=== PATIENT | male | born 1945 | race Caucasian/White ===

== ENCOUNTER 2020-12-31 21:06 | Inpatient (IN) | payer MEDICARE ==
[~2020-12-31] VITALS: Ht 172.7 cm; Wt 55.3 kg
[2020-12-31] MEDS ORDERED: ASPI-1169 PO (22:10)
[2020-12-31] MEDS ORDERED: METO25TA4 PO (22:13)
[2020-12-31] MEDS ORDERED: MAGNESIUM HYDROXIDE 30 ML UDC PO PRN (22:30)
[2020-12-31] MEDS ORDERED: MAG HYDROX/AL HYDROX/SIMETH 30 ML UDC PO PRN (22:30)
[2020-12-31] MEDS ORDERED: ZOLPIDEM TARTRATE 5 MG TABLET PO PRN (22:30)
[2020-12-31] MEDS ORDERED: BLOOD SUGAR DIAGNOSTIC 1 EACH STRIP IN ONE (22:30)
[2020-12-31] MEDS ORDERED: ACETAMINOPHEN 325 MG TABLET PO PRN (22:30)
[2020-12-31] MEDS ORDERED: LORAZEPAM 0.5 MG TABLET PO PRN (22:30)
[2020-12-31] MEDS ORDERED: Z GUARD REMEDY 2 OZ OINT TP PRN (23:00)
--- NOTE | 2020-12-31 23:15 | NUR ---
GPS TUNNEL KILN REPAIRER NOTES: ADMITTED 75 Y/O MALE WHITE PATIENT FROM [facility] TO GPS UNIT ON A 5150 HOLD FOR DTS. PER 5150 HOLD, PATIENT HAS STOPPED TAKING HIS MEDICATIONS, HAS NOT BEEN EATING FOR WEEKS. REPORTS TIRED OF LIVING AND THAT IT IS HIS TIME. FOOD ROTTING IN REFRIGERATOR. HAS NOT BEEN OUT OF THE APARTMENT IN OVER A WEEK. UNABLE TO WALK WITHOUT ASSISTANCE. UNDERWEIGHT. REPORTS," JUST LEAVE HIM ALONE SO HE CAN ." UPON FACE TO FACE ASSESSMENT, PATIENT IS A & O X 1-2, CONFUSED, DISORGANIZED, DEPRESSED, POOR HYGIENE, DISHEVELED, WITHDRAWN, GUARDED, ISOLATIVE, WANTS TO GO BACK HOME, KEEPS ASKING WHY HE IS HERE, NEEDS ASSISTANCE WITH ADL CARE. PATIENT HAS UNSTEADY GAIT & FALL RISK DUE TO WEAKNESS, NEEDS FREQUENT REDIRECTIONS AND REMINDERS. UNIT & ROOM ORIENTATION PROVIDED. BLADDER AND BOWEL CONTINENT. PATIENT WAS ADVISED OF HIS HOLD AND PATIENTS RIGHT BOOKLET GIVEN. PATIENT IS UNDER THE PSYCH CARE OF DR. VELOZ AND THE MEDICAL CARE OF DR. ZULUAGA. PATIENT'S BELONGINGS WERE INVENTORIED AND CHECKED FOR CONTRABAND. ALL CONTRABAND REMOVED AND STORED IN PATIENT HALLWAY LOCKER. MRSA COLLECTED. BS CHECK DONE & IS 109 MG/DL. SKIN ASSESSMENT DONE, PICTURES TAKEN AND WOUND CARE CONSULT ORDERED. PATIENT REFUSED TO SIGN ADMISSION PAPERWORK DUE TO CONFUSION, PATIENT DENIES PAIN OR DISCOMFORT AT THIS TIME. DENIES SI/HI AT THIS TIME. BED IN LOWEST POSITION AND LOCKED WITH SIDE RAILS UP X2. BED ALARM ON. FLUID AND SNACKS GIVEN BUT ATE 25% AT THIS TIME. WILL CONTINUE TO ENCOURAGE PO INTAKE TOLERATED. DIETARY CONSULT ORDERED. WILL CONTINUE TO MONITOR Q15 MIN ROUNDS FOR SAFETY, MOOD AND BEHAVIOR.
--- NOTE | 2020-12-31 23:30 | NUR ---
RN NOTE VERIFIED WITH THE PATIENT WHO TO CALL & NOTIFY ABOUT HIS ADMISSION AT [facility] GPS UNIT," PER PATIENT," I DON'T HAVE ANY ONE LIVING HERE, MY SON LIVES SOME WHERE ELSE, I DON'T EVEN HAVE HIS PHONE NUMBER, THERE IS NO ONE TO CALL." NO FAMILY INFO RECEIVED FROM [facility] WELL.
[2020-12-31 23:51] VITALS: BP 127/72
--- NOTE | 2020-12-31 23:55 | NUR ---
RN NOTE PATIENT SEEN BY DR. ZULUAGA IN HIS ROOM & MED RECON DONE BY MD WELL.
--- NOTE | 2021-01-01 03:47 | NUR ---
RN NOTE PATIENT IS SLEEPING COMFORTABLY AT THIS TIME.
[2021-01-01 06:11] LABS: BASOPHILS % (AUTO) 0.4 % (0.0-2.0); EOSINOPHILS % (AUTO) 0.6 % (0.0-6.0); HEMATOCRIT 45 % (39-51); HEMOGLOBIN 15.4 g/dL (13.5-17.5); LYMPHOCYTES # (AUTO) 1.1 /CMM (0.8-4.8); LYMPHOCYTES % (AUTO) 10.3 % (20.0-44.0); MEAN CORPUSCULAR HGB CONC 34 g/dl (31.0-36.0); MEAN CORPUSCULAR VOLUME 99 fL (80-96); MONOCYTES # (AUTO) 0.9 /CMM (0.1-1.30); MONOCYTES % (AUTO) 8.2 % (2.0-12.0); NEUTROPHILS # (AUTO) 8.4 /CMM (1.8-8.9); NEUTROPHILS % (AUTO) 80.5 % (43.0-81.0); PLATELET COUNT (AUTO) 249 /CMM (150-450); RED BLOOD CELL COUNT(AUTO) 4.59 MIL/uL (4.5-6.0); WHITE BLOOD COUNT (AUTO) 10.4 K/uL (4.3-11.0)
[2021-01-01 06:54] LABS: ALBUMIN 3.1 g/dL (3.4-5.0); BILIRUBIN,TOTAL 0.7 mg/dL (0.2-1.0); CALCIUM, SERUM 12.1 mg/dL (8.5-10.1); CREATININE 0.9 mg/dL (0.6-1.3); MAGNESIUM 1.9 mg/dL (1.8-2.4); PHOSPHORUS 2.2 mg/dL (2.5-4.9); POTASSIUM 3.8 mmol/L (3.5-5.1); TOTAL PROTEIN, SERUM 7.1 g/dL (6.4-8.2)
[2021-01-01 07:35] LABS: THYROID STIMULATING HORMONE 0.991 uIU/mL (0.358-3.74)
[2021-01-01 08:00] VITALS: BP 100/66
[2021-01-01] MEDS: METOPROLOL SUCCINATE 25 MG TAB.SR.24H PO SCH (09:00)
[2021-01-01] MEDS: ASPIRIN 81 MG TAB.CHEW PO SCH (10:15)
[2021-01-01] MEDS: ENSURE ENLIVE CHOC 237 ML CAN PO SCH ×2 (10:15→17:47)
[2021-01-01] MEDS ORDERED: K PHOS NEUTRAL 250 MG TABLET PO ONE (11:00)
[2021-01-01 16:00] VITALS: BP 106/65
--- NOTE | 2021-01-01 18:00 | NUR ---
attempting to get oob often,monitoring closely
[2021-01-01] MEDS: OLANZAPINE 2.5 MG TABLET PO SCH (18:21)
[2021-01-01 20:05] VITALS: BP 109/60
[2021-01-01] MEDS: MIRTAZAPINE 15 MG TABLET PO SCH (22:00)
--- NOTE | 2021-01-01 22:20 | NUR ---
GPS RN NOTES: PATIENT SPIT OUT ATIVAN, TYLENOL AND REMERON. PATIENT IS CONFUSED, RESTLESS AND ANXIOUS. UNABLE TO FOLLOW REDIRECTION. WILL CONTINUE TO MONITOR.
--- NOTE | 2021-01-01 22:29 | NUR ---
GPS RN NOTES: PATIENT SPIT OUT 2200 SCHEDULED MEDICATION REMERON 15MG. PATIENT IS CONFUSED, RESTLESS AND ANXIOUS. UNABLE TO FOLLOW REDIRECTION. WILL CONTINUE TO MONITOR.
--- NOTE | 2021-01-01 22:30 | NUR ---
GPS RN NOTES: PATIENT SPIT OUT PRN MEDICATIONS ATIVAN 0.5MG/1TAB, AND TYLENOL 650MG. PATIENT IS CONFUSED, RESTLESS AND ANXIOUS. UNABLE TO FOLLOW REDIRECTION. WILL CONTINUE TO MONITOR.
[2021-01-02 06:32] LABS: ALBUMIN 2.9 g/dL (3.4-5.0); BILIRUBIN,TOTAL 0.6 mg/dL (0.2-1.0); CALCIUM, SERUM 11.8 mg/dL (8.5-10.1); CREATININE 1.2 mg/dL (0.6-1.3); POTASSIUM 3.2 mmol/L (3.5-5.1); TOTAL PROTEIN, SERUM 6.6 g/dL (6.4-8.2)
[2021-01-02 08:00] VITALS: BP 91/60
[2021-01-02] MEDS: METOPROLOL SUCCINATE 25 MG TAB.SR.24H PO SCH (09:00)
[2021-01-02] MEDS ORDERED: POTASSIUM CHLORIDE 20 MEQ TAB.PRT.SR PO ONE (09:00)
[2021-01-02] MEDS: OLANZAPINE 2.5 MG TABLET PO SCH ×2 (09:00→16:26)
[2021-01-02] MEDS: ENSURE ENLIVE CHOC 237 ML CAN PO SCH ×2 (09:07→16:26)
[2021-01-02] MEDS: ASPIRIN 81 MG TAB.CHEW PO SCH (09:12)
[2021-01-02] MEDS: CHOLECALCIFEROL 1,000 UNIT TABLET (VIT D3) PO SCH (13:01)
[2021-01-02 16:00] VITALS: BP 103/73
[2021-01-02 20:15] VITALS: BP 105/67
[2021-01-02] MEDS: MIRTAZAPINE 15 MG TABLET PO SCH (21:01)
[2021-01-03 06:59] LABS: HEMATOCRIT 51 % (39-51); HEMOGLOBIN 16.9 g/dL (13.5-17.5); LYMPHOCYTES # (AUTO) 0.8 /CMM (0.8-4.8); MEAN CORPUSCULAR HGB CONC 33 g/dl (31.0-36.0); MEAN CORPUSCULAR VOLUME 101 fL (80-96); MONOCYTES # (AUTO) 1.1 /CMM (0.1-1.30); MONOCYTES % (AUTO) 5.1 % (2.0-12.0); NEUTROPHILS # (AUTO) 19.1 /CMM (1.8-8.9); NEUTROPHILS % (AUTO) 90.9 % (43.0-81.0); PLATELET COUNT (AUTO) 224 /CMM (150-450); RED BLOOD CELL COUNT(AUTO) 5.02 MIL/uL (4.5-6.0)
[2021-01-03 08:00] VITALS: BP 95/69
[2021-01-03 08:19] LABS: ALANINE AMINOTRANSFERASE 18 U/L (12-78); ALBUMIN 3.7 g/dL (3.4-5.0); ALKALINE PHOSPHATASE 96 U/L (46-116); ASPARTATE AMINOTRANSFERASE 24 U/L (15-37); BILIRUBIN,TOTAL 0.7 mg/dL (0.2-1.0); CARBON DIOXIDE 27 mmol/L (21-32); CHLORIDE 97 mmol/L (98-107); GLUCOSE 144 mg/dL (74-106); MAGNESIUM 2.3 mg/dL (1.8-2.4); PHOSPHORUS 3.5 mg/dL (2.5-4.9); POTASSIUM 4.2 mmol/L (3.5-5.1); SODIUM SERUM 136 mmol/L (136-145); TOTAL PROTEIN, SERUM 8.4 g/dL (6.4-8.2); UREA NITROGEN, BLOOD 38 mg/dL (7-18)
[2021-01-03 08:22] LABS: CALCIUM, SERUM 13.5 mg/dL (8.5-10.1)
[2021-01-03] MEDS: METOPROLOL SUCCINATE 25 MG TAB.SR.24H PO SCH (08:32)
[2021-01-03] MEDS: ENSURE ENLIVE CHOC 237 ML CAN PO SCH ×2 (08:35→17:06)
[2021-01-03] MEDS: ASPIRIN 81 MG TAB.CHEW PO SCH (08:41)
[2021-01-03] MEDS: OLANZAPINE 2.5 MG TABLET PO SCH ×2 (08:41→17:00)
[2021-01-03] MEDS: CHOLECALCIFEROL 1,000 UNIT TABLET (VIT D3) PO SCH (08:41)
--- NOTE | 2021-01-03 09:15 | NUR ---
RN NOTE ADRYAN HOUSTON ENDORSED A CRITICAL VALUE OF CALCIUM 13.5, REPORTED IT TO KATELIN ROSARIO NP. NO NEW ORDERS.
--- NOTE | 2021-01-03 15:49 | NUR ---
No Point of Contact: SW met with pt. and explored if pt. has any responsible libertarian, family, DPOA, Conservator. Pt. stated, he has one son and one brother however, they are not involved in his life nor does he have their contact information.
--- NOTE | 2021-01-03 15:51 | NUR ---
Initial Discharge Plan: Per pt. he resides at home alone [[address] [facility] [address]; [phone]]. Patient stated he would like to return there once ready for discharge. However, per hold, pt. needs assistance walking, and may need assistance with ADL's. SW will collaborate with pt. and IDT to ensure safe & appropriate discharge planning.
[2021-01-03 16:00] VITALS: BP 97/67
[2021-01-03 20:00] VITALS: BP 118/71
[2021-01-03] MEDS: MIRTAZAPINE 15 MG TABLET PO SCH (21:44)
--- NOTE | 2021-01-04 07:07 | NUR ---
GPS RN CLOSING NOTES: PATIENT IS SLEEPING COMFORTABLY IN BED. PATIENT SLEPT 8HR THIS SHIFT. NO S/S OF DISTRESS. RESPIRATION EVEN AND UNLABORED WITH EQUAL RISE AND FALL OF THE CHEST ON ROOM AIR. ALL PATIENT CARE NEEDS HAVE BEEN MET ANTICIPATED. WILL CONTINUE TO MONITOR FOR SAFETY, MOOD AND BEHAVIOR AND ENDORSE TO AM SHIFT.
[2021-01-04 08:00] VITALS: BP 107/62
[2021-01-04 08:23] LABS: ALANINE AMINOTRANSFERASE 12 U/L (12-78); ALBUMIN 2.8 g/dL (3.4-5.0); ALKALINE PHOSPHATASE 82 U/L (46-116); ASPARTATE AMINOTRANSFERASE 22 U/L (15-37); BILIRUBIN,TOTAL 0.6 mg/dL (0.2-1.0); CARBON DIOXIDE 23 mmol/L (21-32); CHLORIDE 100 mmol/L (98-107); CREATININE 1.7 mg/dL (0.6-1.3); GLUCOSE 113 mg/dL (74-106); POTASSIUM 3.8 mmol/L (3.5-5.1); SODIUM SERUM 136 mmol/L (136-145); TOTAL PROTEIN, SERUM 6.7 g/dL (6.4-8.2); UREA NITROGEN, BLOOD 48 mg/dL (7-18)
--- NOTE | 2021-01-04 08:50 | NUR ---
gps front man: notes tara lyons (recruiter specialist) notified re: abnormal chem today and wbc result from yesterday. also informed her that pt is more lethargic with order may straight cath to collect urine sample. order read back and carried out.
[2021-01-04] MEDS: ASPIRIN 81 MG TAB.CHEW PO SCH ×2 (09:00→10:43)
[2021-01-04] MEDS: OLANZAPINE 2.5 MG TABLET PO SCH (09:00)
[2021-01-04] MEDS: METOPROLOL SUCCINATE 25 MG TAB.SR.24H PO SCH (09:00)
--- NOTE | 2021-01-04 09:15 | NUR ---
gps concrete paving supervisor: notes blood culture drawn at this time, pt remains sleepy, but arousable. held am meds at this time. will continue to monitor.
[2021-01-04] MEDS: ENSURE ENLIVE CHOC 237 ML CAN PO SCH ×2 (09:17→16:55)
--- NOTE | 2021-01-04 09:55 | NUR ---
gps cash applications specialist: notes urine collected via aseptic straight cath technique, kaelyn. yovany. called lab spoke to tavon (david) to picking machine operator specimen.
--- NOTE | 2021-01-04 10:00 | NUR ---
gps dredge pipe installer: md visit tara lyons (credit interviewer) here to see pt. informed her of procalcitonin result; also pt with poor appetite.
[2021-01-04] MEDS: AZITHROMYCIN 250 MG TABLET PO SCH (10:42)
--- NOTE | 2021-01-04 11:38 | NUR ---
WOUND CARE CONSULT: PT PRESENTS THIN AND BONY WITH BLANCHABLE REDNESS TO SACRUM, PRESENT ON ADMISSION. PT IS INCONTINENT. RECOMMENDATIONS MADE FOR SKIN PROTECTION. DISCUSSED WITH NURSING STAFF. IN AGREEMENT WITH PLAN OF CARE. PT FOLLOWED BY DIETITIAN FOR POOR APPETITE. Addendum: 01/04/21 at 1139 by EWELINA LACEY WNDNU Amended: Links added.
[2021-01-04 11:39] LABS: BILIRUBIN,URINE SMALL (NEGATIVE); COLOR,URINE ORANGE (YELLOW); LEUKOCYTE ESTERASE ,URINE NEGATIVE (NEGATIVE); NITRITE, URINE NEGATIVE (NEGATIVE); PH,URINE 5.5 (5.0-8.0); PROTEIN,URINE TRACE mg/dl (NEGATIVE); UGLUCOSE NEGATIVE (NEGATIVE)
[2021-01-04 11:42] LABS: CREATININE, URINE 181.1 MG/DL (30.0-125.0)
[2021-01-04 11:45] LABS: URINE SODIUM, RANDOM < 5 mmol/l (40-220)
[2021-01-04 12:04] LABS: BACTERIA,URINE Few /HPF (None Seen); RBC,URINE F /HPF (0-2); SQUAMOUS EPITHELIAL CELL,UR Few /HPF (None Seen)
--- NOTE | 2021-01-04 14:06 | NUR ---
Family Contact: STACY received a call from the pts brother, Anam ([phone]), who stated that he would like to know where the pt will be discharged to when that time comes. Addendum: 01/05/21 at 1007 by STACY TRIPATHI Pts brotherHong
--- NOTE | 2021-01-04 14:07 | NUR ---
APS Contact: SW received a call from Freddie ([phone]), who stated that he would like to be informed of the pts discharge.
--- NOTE | 2021-01-04 14:22 | NUR ---
Family Contact: STACY received a call from the pts son, Galdino ([phone]), and STACY informed him about the pts condition in the hospital and stated that the pt will be discharged to a nursing facility. STACY stated that she will keep him updated.
[2021-01-04 16:00] VITALS: BP 114/71
[2021-01-04] MEDS: OLANZAPINE ZYDIS 5 MG TAB.RAPDIS PO SCH (16:54)
--- NOTE | 2021-01-04 17:40 | NUR ---
gps field auto appraiser: notes pt remains with poor appetite. pt keeps spitting out food when offered. afebrile. in no apparent distress noted. will continue to monitor.
[2021-01-04 20:00] VITALS: BP 106/62
[2021-01-04] MEDS: MIRTAZAPINE 15 MG TABLET PO SCH (21:07)
[2021-01-05 08:00] VITALS: BP 98/67
[2021-01-05] MEDS: OLANZAPINE ZYDIS 5 MG TAB.RAPDIS PO SCH (09:00)
[2021-01-05] MEDS: METOPROLOL SUCCINATE 25 MG TAB.SR.24H PO SCH (09:00)
--- NOTE | 2021-01-05 09:51 | NUR ---
BP LOW EARLIER.RECHECKED AT THIS TIME AND 104/57,HEART RATE 117.
[2021-01-05] MEDS: AZITHROMYCIN 250 MG TABLET PO SCH (09:57)
[2021-01-05] MEDS: ENSURE ENLIVE CHOC 237 ML CAN PO SCH ×2 (09:57→17:35)
[2021-01-05] MEDS: ASPIRIN 81 MG TAB.CHEW PO SCH (09:57)
--- NOTE | 2021-01-05 09:58 | NUR ---
Probable Cause Hearing: Pts 5250 hold was upheld for grave disability.
--- NOTE | 2021-01-05 10:07 | NUR ---
Family Contact: SW received a call from the pts brother, Hong ([phone]), who stated that he wanted an update on the pt. SW stated that the pt is cooperating with his medications now and that the SW is going to work on finding placement.
[2021-01-05 12:12] LABS: BASOPHILS % (AUTO) 0.1 % (0.0-2.0); HEMATOCRIT 47 % (39-51); HEMOGLOBIN 15.6 g/dL (13.5-17.5); LYMPHOCYTES # (AUTO) 0.8 /CMM (0.8-4.8); LYMPHOCYTES % (AUTO) 4.4 % (20.0-44.0); MEAN CORPUSCULAR HGB CONC 33 g/dl (31.0-36.0); MEAN CORPUSCULAR VOLUME 100 fL (80-96); MONOCYTES # (AUTO) 1.2 /CMM (0.1-1.30); MONOCYTES % (AUTO) 6.9 % (2.0-12.0); NEUTROPHILS # (AUTO) 15.2 /CMM (1.8-8.9); NEUTROPHILS % (AUTO) 88.6 % (43.0-81.0); PLATELET COUNT (AUTO) 261 /CMM (150-450); RED BLOOD CELL COUNT(AUTO) 4.66 MIL/uL (4.5-6.0); WHITE BLOOD COUNT (AUTO) 17.2 K/uL (4.3-11.0)
[2021-01-05 12:29] LABS: CALCIUM, SERUM 12.5 mg/dL (8.5-10.1); CARBON DIOXIDE 29 mmol/L (21-32); CHLORIDE 96 mmol/L (98-107); CREATININE 1.6 mg/dL (0.6-1.3); GLUCOSE 133 mg/dL (74-106); MAGNESIUM 2.4 mg/dL (1.8-2.4); PHOSPHORUS 2.6 mg/dL (2.5-4.9); POTASSIUM 3.8 mmol/L (3.5-5.1); SODIUM SERUM 135 mmol/L (136-145); UREA NITROGEN, BLOOD 48 mg/dL (7-18)
[2021-01-05] MEDS ORDERED: IV NS 0.9% 1,000 ML IV ONE (13:00)
--- NOTE | 2021-01-05 14:20 | NUR ---
ALHAJI UNDERGROUND PRODUCTION FOREPERSON HERE,IV FLUID ORDERS GIVEN.HEP LOCK START WITH #22 ANGIO IN RT. FOREARM,WITHOUT DIFFICULTY. PT. TOLERATED WELL.IN TV RM. WITH SUPERVISION.IN [place] CHAIR.
[2021-01-05 16:00] VITALS: BP 104/65
[2021-01-05 19:49] VITALS: BP 96/66
[2021-01-05] MEDS: MIRTAZAPINE 15 MG TABLET PO SCH (21:42)
[2021-01-05] MEDS ORDERED: OLANZAPINE ZYDIS 5 MG TAB.RAPDIS PO SCH (22:00)
[2021-01-06 06:42] LABS: MAGNESIUM 2.2 mg/dL (1.8-2.4); PHOSPHORUS 2.2 mg/dL (2.5-4.9); POTASSIUM 3.8 mmol/L (3.5-5.1)
[2021-01-06 07:11] LABS: EOSINOPHILS % (AUTO) 0.2 % (0.0-6.0); HEMATOCRIT 40 % (39-51); HEMOGLOBIN 13.5 g/dL (13.5-17.5); LYMPHOCYTES % (AUTO) 9.1 % (20.0-44.0); MEAN CORPUSCULAR HGB CONC 34 g/dl (31.0-36.0); MEAN CORPUSCULAR VOLUME 99 fL (80-96); MONOCYTES # (AUTO) 0.9 /CMM (0.1-1.30); MONOCYTES % (AUTO) 8.7 % (2.0-12.0); NEUTROPHILS # (AUTO) 8.7 /CMM (1.8-8.9); PLATELET COUNT (AUTO) 204 /CMM (150-450); RED BLOOD CELL COUNT(AUTO) 4.01 MIL/uL (4.5-6.0); WHITE BLOOD COUNT (AUTO) 10.7 K/uL (4.3-11.0)
[2021-01-06 08:00] VITALS: BP 116/72
[2021-01-06] MEDS: ENSURE ENLIVE CHOC 237 ML CAN PO SCH ×3 (08:31→17:26)
[2021-01-06] MEDS: ASPIRIN 81 MG TAB.CHEW PO SCH (08:31)
[2021-01-06] MEDS: METOPROLOL SUCCINATE 25 MG TAB.SR.24H PO SCH (08:32)
--- NOTE | 2021-01-06 09:00 | NUR ---
RN NOTE- PT IN BED, ST AT BEDSIDE ASSISTING W AM MEAL. PT W TROUBLE SWALLOWING , SLOW TO SWALLOW., DYSPHAGIA. CHANGING FLUIDS TO HONEY THICK, MED COMPLIANT, CHEST W RHONCHI AT MAINSTEM BRONCHUS, CLEARS W COUGH. END TRIMMER KITTY TO ORDER EXPECTORANT , ASSIST PT AND INCREASE FLUIDS AND INTAKE
[2021-01-06] MEDS ORDERED: NEUTRA PHOS 1 POWD.PACKET PO ONE ×2 (11:00→17:00)
[2021-01-06] MEDS: AZITHROMYCIN 250 MG TABLET PO SCH (11:36)
[2021-01-06 13:07] LABS: *SPE A/G RATIO 0.9 (0.7-1.7); *SPE ALBUMIN 3.4 g/dL (2.9-4.4); *SPE ALPHA-1-GLOBULIN 0.5 g/dL (0.0-0.4); *SPE ALPHA-2-GLOBULIN 0.9 g/dL (0.4-1.0); *SPE BETA GLOBULIN 1.2 g/dL (0.7-1.3); *SPE GLOBULIN, TOTAL 3.9 g/dL (2.2-3.9); *SPE M-SPIKE Not Observed g/dL (Not Observed); *SPEGAMMA GLOBULIN 1.3 g/dL (0.4-1.8)
[2021-01-06 16:00] VITALS: BP 98/69
--- NOTE | 2021-01-06 19:30 | NUR ---
GPS RN OPENING PATIENT A/OX3. NO S/S OF APPARENT DISTRESS. BREATHING UNLABORED WITH EQUAL RISE AND FALL OF THE CHEST. TOLERATING ROOM AIR WITH SPO2 100%. NO C/O PAIN VIET. PATIENT COOPERATIVE, HAS FLAT AFFECT, AND WITHDRAWN AT THIS TIME. PATIENT DENIES SUICIDAL IDEATION AND HOMICIDAL IDEATIONS AT THIS TIME. SAFETY IN PLACE, BED IN LOWEST, LOCKED POSITION, SIDE RAILS UP X4, BED ALARM ON. WILL CONTINUE TO MONITOR Q15 MIN WITH THE HELP OF STAFF TO MAINTAIN SAFETY.
[2021-01-06 20:18] VITALS: BP 102/64
[2021-01-06] MEDS ORDERED: OLANZAPINE ZYDIS 5 MG TAB.RAPDIS PO SCH (22:00)
--- NOTE | 2021-01-07 06:28 | NUR ---
GPS RN CLOSING PATIENT IN BED, WITH EYES CLOSED, MOUTH OPEN, EASY TO AROUSE. A/OX2. NO S/S OF APPARENT DISTRESS. BREATHING UNLABORED WITH EQUAL RISE AND FALL OF THE CHEST. TOLERATING ROOM AIR. NO C/O PAIN VIET. ALL NEEDS ATTENDED. PATIENT COMPLIANT WITH MEDS. PATIENT DENIES SUICIDAL IDEATION AND HOMICIDAL IDEATIONS AT THIS TIME. SAFETY KEPT IN PLACE THE WHOLE SHIFT, BED IN LOWEST, LOCKED POSITION, SIDE RAILS UP X2, BED ALARM ON. NO SIGNIFICANT CHANGE SINCE LAST SHIFT. WILL ENDORSE CARE TO MORNING SHIFT RN .
[2021-01-07 06:57] LABS: BASOPHILS % (AUTO) 0.1 % (0.0-2.0); EOSINOPHILS % (AUTO) 0.9 % (0.0-6.0); HEMATOCRIT 38 % (39-51); HEMOGLOBIN 13.1 g/dL (13.5-17.5); LYMPHOCYTES % (AUTO) 11.3 % (20.0-44.0); MEAN CORPUSCULAR HGB CONC 34 g/dl (31.0-36.0); MEAN CORPUSCULAR VOLUME 99 fL (80-96); MONOCYTES # (AUTO) 0.9 /CMM (0.1-1.30); NEUTROPHILS # (AUTO) 6.7 /CMM (1.8-8.9); NEUTROPHILS % (AUTO) 77.7 % (43.0-81.0); PLATELET COUNT (AUTO) 233 /CMM (150-450); RED BLOOD CELL COUNT(AUTO) 3.85 MIL/uL (4.5-6.0); WHITE BLOOD COUNT (AUTO) 8.6 K/uL (4.3-11.0)
[2021-01-07 07:14] LABS: CALCIUM, SERUM 10.8 mg/dL (8.5-10.1)
[2021-01-07 07:15] LABS: MAGNESIUM 2.1 mg/dL (1.8-2.4); PHOSPHORUS 1.5 mg/dL (2.5-4.9)
[2021-01-07 08:00] VITALS: BP 120/60
[2021-01-07] MEDS: ENSURE ENLIVE CHOC 237 ML CAN PO SCH ×3 (08:33→16:54)
[2021-01-07] MEDS: ASPIRIN 81 MG TAB.CHEW PO SCH (08:33)
[2021-01-07] MEDS: METOPROLOL SUCCINATE 25 MG TAB.SR.24H PO SCH (08:34)
[2021-01-07] MEDS ORDERED: K PHOS NEUTRAL 250 MG TABLET PO ONE (11:00)
--- NOTE | 2021-01-07 11:30 | NUR ---
gps delicate fabrics presser: notes dr. basilio (psych) here and made re: pt remains with poor appetite. per dr. basilio let the medical doctor decides if needed to go to medical floor. awaiting for dr. ambriz (hospitalist) to make rounds. will continue to monitor.
[2021-01-07] MEDS: AZITHROMYCIN 250 MG TABLET PO SCH (11:55)
--- NOTE | 2021-01-07 12:50 | NUR ---
gps lion hunter: notes dr. ambriz here and informed md that pt remains with poor appetite and also per speech therapist, pt may benefit with ngt feeding and also recommends Video swallow study may benefit the pt to assess his pharyngeal swallow skill and aspiration risk. dr. ambriz says okay pt to go up to medical floor and he will let tara lyons (acnp) know for admission. left message to rik (son) via voice mail.
--- NOTE | 2021-01-07 13:40 | NUR ---
gps profiler operator: notes dr. basilio notified and informed md that dr. ambriz (hospitalist) okay to d'c to medical floor with order to continue hold and discharge pt to medical floor.
--- NOTE | 2021-01-07 15:20 | NUR ---
gps herb digger: notes still awaiting for bed in med/surg and sitter to go with the pt to medical floor.
--- NOTE | 2021-01-07 15:25 | NUR ---
gps creasing machine operator: notes place another call to Galdino (son, ), left message to call [facility].
--- NOTE | 2021-01-07 15:40 | NUR ---
gps money manager: notes coco (brother, ) notified and made aware re: transfer to medical floor unit for further evaluation due to poor intake, spoke to him over the phone and also informed him that i have left 2 message to rik (son), but he hasn't called back.
[2021-01-07] MEDS ORDERED: MAGN400O6 PO (15:43)
[2021-01-07] MEDS ORDERED: LACT-246 PO (15:43)
[2021-01-07] MEDS ORDERED: ACET-868 PO (15:43)
[2021-01-07] MEDS ORDERED: OLAN2.5T3 PO (15:43)
[2021-01-07] MEDS ORDERED: METO25TA4 PO (15:43)
[2021-01-07] MEDS ORDERED: AZIT500T PO (15:43)
[2021-01-07] MEDS ORDERED: LORA-259 PO (15:43)
[2021-01-07] MEDS ORDERED: MAG-55 PO (15:43)
[2021-01-07] MEDS ORDERED: ASPI-1169 PO (15:43)
[2021-01-07] MEDS ORDERED: ALLA266C2 TP (15:43)
[2021-01-07 16:00] VITALS: BP 90/56
--- NOTE | 2021-01-07 17:40 | NUR ---
gps die sinker apprentice: notes bed available in medical floor room 311-1. faxed facesheet to admitting to move pt from 213-2 to room 311-1.
--- NOTE | 2021-01-07 17:50 | NUR ---
gps auto body worker: notes report given to valerie (rn) for continuity of care. pm care rendered and getting ready to go up to room 311-1 with belongings, original hold, and d'c papers.
--- NOTE | 2021-01-07 17:53 | NUR ---
gps chief business officer: notes e.r. admitting notified and made aware that pt can go ahead move to room 311-1
--- NOTE | 2021-01-07 18:10 | NUR ---
gps supervisor cell operation: notes discharge pt from gps to 3rd floor med surg room 311-1 via wheelchair accompanied by 2 staff. transferred pt safely to bed. kept comfortable. sitter at bedside. valerie (rn) updated condition.
== END 2021-01-07 17:48 | disposition short-term general hospital (02) | DRG 885 ==
LOC: GPS 21:43
PROVIDERS: ADMIT Psychiatry & Neurology Psychiatry; ATTEND Internal Medicine
DX: F39 Unspecified mood [affective] disorder (principal); E43 Unspecified severe protein-calorie malnutrition; N17.0 Acute kidney failure with tubular necrosis; G92 Toxic encephalopathy; J18.9 Pneumonia, unspecified organism; F03.91 Unspecified dementia, unspecified severity, with behavioral disturbance; Z68.1 Body mass index [BMI] 19.9 or less, adult; E83.52 Hypercalcemia; F32.9 Major depressive disorder, single episode, unspecified; I10 Essential (primary) hypertension; R62.7 Adult failure to thrive; E87.6 Hypokalemia; E55.9 Vitamin D deficiency, unspecified; E83.39 Other disorders of phosphorus metabolism; E86.0 Dehydration; F29 Unspecified psychosis not due to a substance or known physiological condition; Z73.6 Limitation of activities due to disability; R73.9 Hyperglycemia, unspecified; M62.50 Muscle wasting and atrophy, not elsewhere classified, unspecified site; D72.829 Elevated white blood cell count, unspecified
CPT/HCPCS: 36415; 70450-TC; 71045-TC; 80048-TC; 80053-TC; 80061-TC; 81001; 82306; 82570-TC; 82962-TC; 83735-TC; 83970; 84100-TC; 84155; 84165; 84300-TC; 84443-TC; 85025-TC; 87040-TC; 87081-TC; 87086-TC; 92526; 92611-TC; 97110-TC; 97116-TC; 97530-TC; J7030

== ENCOUNTER 2021-01-07 18:11 | Inpatient (IN) | payer MEDICARE ==
[~2021-01-07] VITALS: Ht 172.7 cm; Wt 53.1 kg
[~2021-01-07 18:11] MED LIST: ACET-868 PO; ALLA266C2 TP; ASPI-1169 PO; AZIT500T PO; LACT-246 PO; LORA-259 PO; MAG-55 PO; MAGN400O6 PO; METO25TA4 PO; OLAN2.5T3 PO
--- NOTE | 2021-01-07 19:10 | NUR ---
RN NOTES PATIENT ARRIVED TO UNIT AT ROOM 311-1 VIA GURNEY FROM GPS, SITTER AT BEDSIDE; PER SRUTHI, FUSE CUP EXPANDER, PATIENT ADMITTED MED-SURG PATIENT AND WILL INPUT ORDERS. SPOKE W/ LYNNE, GPS NURSE, AND WAS INFORMED THAT RAMON ([phone]), BROTHER, IS ALREADY AWARE OF PATIENT'S CONDITION AND MED-SURG ADMISSION. DANNY ([phone]), SON, NOT YET AWARE BUT LEFT MESSAGE. ENDORSED TO WRAPPER LAYER AND EXAMINER SOFT WORK RN FOR KRYS.
--- NOTE | 2021-01-07 19:30 | NUR ---
GLASS TECHNICIAN/INSTALLER NOTES PATIENT IN BED. A/OX1. NO IV LINE NOTED. TOLERATING ROOM AIR, NO S/S OF DISTRESS. NO C/O PAIN VIET. SITTER IN THE ROOM. SAFETY IN PLACE: BED IN LOWEST, LOCKED POSITION; CALL LIGHT WITHIN REACH. COLOR MAKER FORMULATOR NOTED. READING SR 70'S. WILL CONTINUE TO MONITOR.
[2021-01-07] MEDS ORDERED: MAGNESIUM HYDROXIDE 30 ML UDC PO PRN ×2 (21:00)
[2021-01-07] MEDS ORDERED: Z GUARD REMEDY 2 OZ OINT TP PRN ×2 (21:00)
[2021-01-07] MEDS ORDERED: ONDANSETRON HCL/PF 4 MG/2 ML VIAL IVP PRN (21:00)
[2021-01-07] MEDS ORDERED: LORAZEPAM 1 MG TABLET PO PRN (21:00)
[2021-01-07] MEDS ORDERED: MAG HYDROX/AL HYDROX/SIMETH 30 ML UDC PO PRN ×2 (21:00)
[2021-01-07] MEDS ORDERED: ACETAMINOPHEN 325 MG TABLET PO PRN ×2 (21:00)
[2021-01-07] MEDS ORDERED: OLANZAPINE 2.5 MG TABLET PO SCH (22:00)
[2021-01-07] MEDS ORDERED: VANCOMYCIN 1 GM in IV D5W 250 ML IV ONE (22:00)
--- NOTE | 2021-01-07 22:00 | NUR ---
DIRECTOR REGULATORY COMPLIANCE NOTES IV LINE INSERTED BY OWEN VELÁSQUEZ. AFTER 2 ATTEMPTS ON MY END. PATIENT VEINS FLAT, DEHYDRATED. INITIATED IV FLUIDS AND ANTIBIOTIC. WILL CONTINUE TO MONITOR.
[2021-01-07] MEDS: ENOXAPARIN SODIUM 40 MG/0.4 ML DISP.SYRIN SQ SCH (22:05)
[2021-01-08] MEDS: PIPERACILLIN /TAZOBACTAM 3.375 G in IV D5W 50 ML IV SCH ×4 (00:07→17:27)
[2021-01-08 01:17] VITALS: BP 85/54
[2021-01-08 06:49] LABS: BASOPHILS % (AUTO) 0.2 % (0.0-2.0); EOSINOPHILS % (AUTO) 1.7 % (0.0-6.0); HEMATOCRIT 38 % (39-51); HEMOGLOBIN 12.8 g/dL (13.5-17.5); LYMPHOCYTES # (AUTO) 1.2 /CMM (0.8-4.8); LYMPHOCYTES % (AUTO) 15.8 % (20.0-44.0); MEAN CORPUSCULAR HGB CONC 34 g/dl (31.0-36.0); MEAN CORPUSCULAR VOLUME 99 fL (80-96); MONOCYTES # (AUTO) 0.8 /CMM (0.1-1.30); MONOCYTES % (AUTO) 10.7 % (2.0-12.0); NEUTROPHILS # (AUTO) 5.4 /CMM (1.8-8.9); NEUTROPHILS % (AUTO) 71.6 % (43.0-81.0); PLATELET COUNT (AUTO) 240 /CMM (150-450); RED BLOOD CELL COUNT(AUTO) 3.81 MIL/uL (4.5-6.0); WHITE BLOOD COUNT (AUTO) 7.6 K/uL (4.3-11.0)
[2021-01-08 07:29] LABS: ALBUMIN 2.5 g/dL (3.4-5.0); BILIRUBIN,DIRECT 0.2 mg/dL (0.0-0.2); BILIRUBIN,TOTAL 0.6 mg/dL (0.2-1.0); CALCIUM, SERUM 10.4 mg/dL (8.5-10.1); CREATININE 0.8 mg/dL (0.6-1.3); MAGNESIUM 1.9 mg/dL (1.8-2.4); PHOSPHORUS 2.2 mg/dL (2.5-4.9); POTASSIUM 3.3 mmol/L (3.5-5.1); TOTAL PROTEIN, SERUM 5.8 g/dL (6.4-8.2)
--- NOTE | 2021-01-08 07:45 | NUR ---
telephone interviewer notes no significant change. endorsed care to morning rn.
--- NOTE | 2021-01-08 08:00 | NUR ---
RN OPENING NOTE RECEIVED PATIENT IN BED, AO X 2, ABLE TO RESPONDS ALL STIMULI. NO S/S OF DISTRESS SI/HI OBSERVED. SITTERAT BED SIDE. SKIN IS WARM TO TOUCH KEEP CLEAN/DRY, INTACT IV SITE. RESPIRATORY EVEN AND UNLABORED ON ROOM AIR, NO DISTRESS OBSERVED. KEPT ELEVATED HOB FOR ENSURE AIRWAY AND ASPIRATION PRECAUTION, ALSO LOWEST BED POSITION FOR SAFETY. CALL LIGHT WITHIN REACH, WILL CONTINUE TO MONITOR.
[2021-01-08] MEDS: ASPIRIN 81 MG TAB.CHEW PO SCH (08:52)
[2021-01-08] MEDS: METOPROLOL SUCCINATE 25 MG TAB.SR.24H PO SCH (08:53)
[2021-01-08] MEDS ORDERED: PANTOPRAZOLE 40 MG VIAL IV SCH (09:00)
[2021-01-08] MEDS: ENSURE ENLIVE 237 ML LIQUID (VANILLA) PO SCH ×3 (09:00→17:36)
[2021-01-08] MEDS ORDERED: POTASSIUM CHLORIDE 20 MEQ TAB.PRT.SR PO SCH (09:30)
[2021-01-08] MEDS: VANCOMYCIN 0.75 GM in IV D5W 250 ML IV SCH ×2 (09:47→21:52)
[2021-01-08] MEDS ORDERED: K PHOS NEUTRAL 250 MG TABLET PO ONE (11:00)
[2021-01-08] MEDS: MEGESTROL ACETATE 40 MG TABLET PO SCH (17:27)
[2021-01-08] MEDS: IV NS 0.9% 1,000 ML IV PRN (17:36)
[2021-01-08 17:56] LABS: BILIRUBIN,URINE NEGATIVE (NEGATIVE); COLOR,URINE DARK YELLOW (YELLOW); LEUKOCYTE ESTERASE ,URINE NEGATIVE (NEGATIVE); NITRITE, URINE NEGATIVE (NEGATIVE); PROTEIN,URINE NEGATIVE (NEGATIVE); UGLUCOSE NEGATIVE (NEGATIVE)
--- NOTE | 2021-01-08 18:30 | NUR ---
RN CLOSING NOTE PATIENT IN BED, NO S/S OF DISTRESS ALSO NO SI/HI OBSERVED. SKIN IS WARM TO TOUCH,KEEP CLEAN/DRY. RESPIRATORY EVEN AND UNLABORED ON ROOM AIR. KEPT ELEVATED HOB FOR ENSURE AIRWAY AND ASPIRATION PRECAUTION, ALSO LOWEST BED POSITION FOR SAFETY. SITTER AT BED SIDE. CALL LIGHT WITHIN REACH, WILL ENDORSE DRAFTER CARTOGRAPHIC.
--- NOTE | 2021-01-08 19:30 | NUR ---
RN Opening Notes Patient is awake resting in bed. Patient's alert and oriented x2. Patient's on room air with no respiratory distress noted. Pt's on a tele monitor with no cardiac distress noted. Patient has an IV access on his right wrist gauge #20 which is intact and patent. Safety measures in place: Bed locked, bed alarm on, side rails up x3, sitter present, and call light within reach of the patient. Will continue to monitor the patient.
[2021-01-08 19:40] LABS: BACTERIA,URINE None seen /HPF (None Seen); RBC,URINE 0-2 /HPF (0-2); SQUAMOUS EPITHELIAL CELL,UR Few /HPF (None Seen); WBC,URINE 0-2 /HPF (0-3)
[2021-01-08] MEDS: ENOXAPARIN SODIUM 40 MG/0.4 ML DISP.SYRIN SQ SCH (21:33)
[2021-01-08] MEDS: MIRTAZAPINE 15 MG TABLET PO SCH (21:36)
--- NOTE | 2021-01-08 23:28 | NUR ---
RN Notes Patient received 0.5 mg of Ativan by mouth for anxiety. Will continue to monitor the patient.
[2021-01-09] MEDS: PIPERACILLIN /TAZOBACTAM 3.375 G in IV D5W 50 ML IV SCH ×4 (00:07→17:19)
[2021-01-09 06:24] LABS: BASOPHILS % (AUTO) 0.3 % (0.0-2.0); EOSINOPHILS % (AUTO) 1.5 % (0.0-6.0); HEMATOCRIT 40 % (39-51); HEMOGLOBIN 13.5 g/dL (13.5-17.5); LYMPHOCYTES # (AUTO) 1.1 /CMM (0.8-4.8); LYMPHOCYTES % (AUTO) 13.1 % (20.0-44.0); MEAN CORPUSCULAR HGB CONC 34 g/dl (31.0-36.0); MEAN CORPUSCULAR VOLUME 99 fL (80-96); MONOCYTES # (AUTO) 0.6 /CMM (0.1-1.30); MONOCYTES % (AUTO) 7.5 % (2.0-12.0); NEUTROPHILS # (AUTO) 6.4 /CMM (1.8-8.9); NEUTROPHILS % (AUTO) 77.6 % (43.0-81.0); PLATELET COUNT (AUTO) 268 /CMM (150-450); RED BLOOD CELL COUNT(AUTO) 4.02 MIL/uL (4.5-6.0); WHITE BLOOD COUNT (AUTO) 8.2 K/uL (4.3-11.0)
[2021-01-09 06:45] LABS: CALCIUM, SERUM 9.6 mg/dL (8.5-10.1); CREATININE 0.9 mg/dL (0.6-1.3); MAGNESIUM 1.8 mg/dL (1.8-2.4); PHOSPHORUS 1.4 mg/dL (2.5-4.9); POTASSIUM 3.7 mmol/L (3.5-5.1)
--- NOTE | 2021-01-09 07:43 | NUR ---
RN Closing Notes Patient was last seen sleeping in bed. Patient's alert and oriented x2. Patient's on room air with no respiratory distress noted. Pt's on a tele monitor with no cardiac distress noted. Patient has an IV access on his right wrist gauge #20 which is intact and patent. Safety measures in place: Bed locked, bed alarm on, side rails up x3, sitter present, and call light within reach of the patient. Endorsed care to the day shift nurse.
--- NOTE | 2021-01-09 07:58 | NUR ---
RN OPENING NOTE RECEIVED PATIENT IN BED, AO X 2, NO S/S OF DISTRESS ALSO SI/HI OBSERVED. ABLE TO RESPONDS ALL STIMULI. SKIN IS WARM TO TOUCH KEEP CLEAN/DRY, INTACT IV SITE. RESPIRATORY EVEN AND UNLABORED ON ROOM AIR, NO DISTRESS OBSERVED. KEPT ELEVATED HOB FOR ENSURE AIRWAY AND ASPIRATION PRECAUTION, ALSO LOWEST BED POSITION FOR SAFETY. SITTER AT BED SIDE. CALL LIGHT WITHIN REACH, WILL CONTINUE TO MONITOR.
[2021-01-09 08:00] VITALS: BP 129/85
[2021-01-09] MEDS ORDERED: K PHOS NEUTRAL 250 MG TABLET PO ONE (08:00)
[2021-01-09] MEDS: MEGESTROL ACETATE 40 MG TABLET PO SCH ×2 (08:14→17:19)
[2021-01-09] MEDS: ASPIRIN 81 MG TAB.CHEW PO SCH (08:14)
[2021-01-09] MEDS: METOPROLOL SUCCINATE 25 MG TAB.SR.24H PO SCH (08:14)
[2021-01-09] MEDS: PANTOPRAZOLE 40 MG TABLET.DR PO SCH (08:14)
[2021-01-09] MEDS: ENSURE ENLIVE 237 ML LIQUID (VANILLA) PO SCH ×3 (08:28→17:19)
[2021-01-09] MEDS: VANCOMYCIN 0.75 GM in IV D5W 250 ML IV SCH (10:25)
--- NOTE | 2021-01-09 11:36 | NUR ---
TRUCK DISPATCHER RECOMMENDED AND PLACED ORDER PURRED DIET WITH HONEY THICK AND SWALLOW EVALUATION ON TOMORROW. ACCEPTED BY MD ABOVE.
[2021-01-09] MEDS: IV NS 0.9% 1,000 ML IV PRN (13:57)
--- NOTE | 2021-01-09 17:46 | NUR ---
RN CLOSING NOTE PATIENT IN BED, NO S/S OF DISTRESS OR SI/HI OBSERVED. SITTER AT BED SIDE. SKIN IS WARM TO TOUCH, KEEP CLEAN/DRY. RESPIRATORY EVEN AND UNLABORED ON ROOM AIR. KEPT ELEVATED HOB FOR ENSURE AIRWAY AND ASPIRATION PRECAUTION, ALSO LOWEST BED POSITION FOR SAFETY. CALL LIGHT WITHIN REACH, WILL ENDORSE PACKAGE CAR DRIVER.
[2021-01-09 18:44] VITALS: BP 105/60
[2021-01-09 20:00] VITALS: BP 99/57
--- NOTE | 2021-01-09 20:00 | NUR ---
MS RN CLOSING NOTES Patient is A&Ox2. Denies any pain.No signs of distress noted. Complains of feeling the urge to have a BM although he already had one. Abdomen non distended and non-tender, bowel sounds active. Will monitor. Has 1:1 observation, no self-harm acts attempted, no aggressive behavior, but is very restless trying to get out of bed.
[2021-01-09] MEDS: MIRTAZAPINE 15 MG TABLET PO SCH (21:08)
[2021-01-09] MEDS: ENOXAPARIN SODIUM 40 MG/0.4 ML DISP.SYRIN SQ SCH (21:13)
[2021-01-09] MEDS ORDERED: VANCOMYCIN 1 GM in IV D5W 250ml IV SCH (22:00)
[2021-01-10] VITALS: BP 121/69
[2021-01-10] MEDS: PIPERACILLIN /TAZOBACTAM 3.375 G in IV D5W 50 ML IV SCH ×2 (00:12→05:10)
[2021-01-10 04:00] VITALS: BP 111/60
[2021-01-10 06:59] LABS: BASOPHILS % (AUTO) 0.5 % (0.0-2.0); EOSINOPHILS % (AUTO) 1.7 % (0.0-6.0); HEMATOCRIT 38 % (39-51); LYMPHOCYTES # (AUTO) 1.1 /CMM (0.8-4.8); LYMPHOCYTES % (AUTO) 11.7 % (20.0-44.0); MEAN CORPUSCULAR HGB CONC 34 g/dl (31.0-36.0); MEAN CORPUSCULAR VOLUME 99 fL (80-96); MONOCYTES # (AUTO) 0.8 /CMM (0.1-1.30); NEUTROPHILS % (AUTO) 77.1 % (43.0-81.0); PLATELET COUNT (AUTO) 278 /CMM (150-450); RED BLOOD CELL COUNT(AUTO) 3.84 MIL/uL (4.5-6.0); WHITE BLOOD COUNT (AUTO) 9.1 K/uL (4.3-11.0)
--- NOTE | 2021-01-10 07:24 | NUR ---
Patient A&Ox1. VSS.Tolerating IV ABX well. No signs of distress. Cooperative with care. No overnight events.
--- NOTE | 2021-01-10 07:25 | NUR ---
RN NOTES PATIENT SEEN W/ SITTER AT BEDSIDE, ASSISTING PATIENT TO THE BATHROOM; NOTED AWAKE AND VERBALLY RESPONSIVE. A/O X1-2, ABLE TO MAKE NEEDS KNOWN. BREATHING EVEN AND UNLABORED ON ROOM AIR. IVF OF NS AT 75ML/HR INFUSING WELL. SAFETY MEASURES IN PLACE. WILL CONTINUE TO MONITOR.
[2021-01-10 07:43] LABS: ALBUMIN 2.4 g/dL (3.4-5.0); BILIRUBIN,TOTAL 0.6 mg/dL (0.2-1.0); CALCIUM, SERUM 9.7 mg/dL (8.5-10.1); CREATININE 0.9 mg/dL (0.6-1.3); MAGNESIUM 1.7 mg/dL (1.8-2.4); PHOSPHORUS 2.3 mg/dL (2.5-4.9); POTASSIUM 3.7 mmol/L (3.5-5.1); TOTAL PROTEIN, SERUM 5.8 g/dL (6.4-8.2)
[2021-01-10 08:00] VITALS: BP 93/53
[2021-01-10] MEDS: ENSURE ENLIVE 237 ML LIQUID (VANILLA) PO SCH ×4 (08:01→16:24)
[2021-01-10] MEDS: METOPROLOL SUCCINATE 25 MG TAB.SR.24H PO SCH (08:01)
[2021-01-10] MEDS: PANTOPRAZOLE 40 MG TABLET.DR PO SCH (08:13)
[2021-01-10] MEDS: ASPIRIN 81 MG TAB.CHEW PO SCH (08:13)
[2021-01-10] MEDS: MEGESTROL ACETATE 40 MG TABLET PO SCH ×2 (08:13→16:24)
--- NOTE | 2021-01-10 09:09 | NUR ---
RN NOTES ST RANJAN, AT BEDSIDE FOR ST RO. PATIENT ASSISTED W/ FEEDING.
--- NOTE | 2021-01-10 09:15 | NUR ---
RN NOTES PATIENT VERBALIZED TO SPEECH THERAPIST, "I WANT TO ". PATIENT W/ HISTORY OF SI AND CURRENTLY ON 5250 HOLD. ASKED PATIENT IF HE HAS THOUGHTS OF HURTING HIMSELF AND/OR OTHERS BUT DID NOT RESPOND; ALSO ASKED PATIENT IF HE HAS ANY PLAN ON CARRYING OUT WHAT HE STATED BUT PATIENT SHOOK HIS HEAD AND DID NOT SAY ANYTHING. NO PLANS AT THIS TIME NOTED. WILL CONTINUE TO MONITOR.
--- NOTE | 2021-01-10 09:50 | NUR ---
RN NOTES SPOKE W/ RAMON, BROTHER, AND UPDATED ABOUT PATIENT'S PROGRESS AND CONDITION. PER RAMON, HE HAS LEFT MESSAGES TO PATIENT'S SON.
--- NOTE | 2021-01-10 10:05 | NUR ---
RN NOTES PATIENT WAS SEEN BY SRUTHI TANG, DIANNA, AND DISCUSSED PLAN OF CARE. IV ATB D/C'D AT THIS TIME PER BOBBIN PAINTER IT IS NOT INDICATED BASED ON CLINICAL PRESENTATION. WILL CONTINUE TO MONITOR.
[2021-01-10] MEDS: Magnesium 1GM/D5W 100ML PREMIX 100 ML IV SCH ×2 (10:07→11:50)
[2021-01-10] MEDS ORDERED: K PHOS NEUTRAL 250 MG TABLET PO ONE (11:30)
--- NOTE | 2021-01-10 11:45 | NUR ---
RN NOTES RECEIVED CALL FROM [facility] REVIEWING PATIENT'S CASE FOR INTAKE; INFORMED ABOUT PATIENT'S CONDITION AND PROGRESS. WILL CALL BACK FOR ANY QUESTIONS.
[2021-01-10 12:00] VITALS: BP 83/53
[2021-01-10] MEDS: IV NS 0.9% 1,000 ML IV PRN (12:01)
--- NOTE | 2021-01-10 12:05 | NUR ---
RN NOTES PATIENT WAS SEEN BY DR. PERKINS TODAY; PER MD, CONTINUE W/ 5250 HOLD AT THIS TIME AND MONITOR PATIENT ON DAY-TO-DAY BASIS FROM MEDICAL PERSPECTIVE.
--- NOTE | 2021-01-10 13:25 | NUR ---
RN NOTES NEW IV LINE ON LEFT HAND #20 GAUGE INSERTED.
--- NOTE | 2021-01-10 15:35 | NUR ---
RN NOTES RECEIVED A CALL FROM DANNY, PATIENT'S SON, AND INFORMED ABOUT PATIENT'S STATUS. PER DANNY, HE DOES NOT WANT TO BE INCLUDED IN THE CONTACT LIST OF THE PATIENT NOR DOES HE WANT TO BE RESPONSIBLE FOR PATIENT'S MEDICAL DECISION-MAKING.
[2021-01-10 16:00] VITALS: BP 99/62
--- NOTE | 2021-01-10 17:17 | NUR ---
RN NOTES PATIENT SEEN BY DR. HOOVER W/ ORDER FOR PT/OR EVAL.
--- NOTE | 2021-01-10 18:42 | NUR ---
RN NOTES PATIENT RESTING IN BED, EYES CLOSED, ABLE TO BE AWAKENED. BREATHING EVEN AND UNLABORED, CONTINUES ON ROOM AIR. SPOKE W/ JASMINE, IRRIGATOR SPRINKLING SYSTEM, AND WAS INFORMED THAT PATIENT WAS ACCEPTED AT [facility]. ORDERS NOTED FROM DR. TONY. IVF INFUSING WELL. SAFETY PRECAUTIONS MAINTAINED. WILL ENDORSE TO GROUND CREWMAN AIRCRAFT SUPPORT RN FOR KRYS.
[2021-01-10 20:00] VITALS: BP 91/52
--- NOTE | 2021-01-10 21:08 | NUR ---
MS/TELE/RN DURING INITIAL SHIFT ROUNDING AT 1930, PATIENT WAS IN BED AWAKE, ALERT, ORIENTED X 1 COMFORTABLE, NO DISTRESS NOTED, SITTER AT BEDSIDE FOR SAFETY, WILL MONITOR.
[2021-01-10] MEDS: MIRTAZAPINE 15 MG TABLET PO SCH (21:37)
[2021-01-10] MEDS: ENOXAPARIN SODIUM 40 MG/0.4 ML DISP.SYRIN SQ SCH (21:38)
[2021-01-11] VITALS: BP 110/70
[2021-01-11 04:00] VITALS: BP 107/62
[2021-01-11] MEDS: IV NS 0.9% 1,000 ML IV PRN (04:13)
--- NOTE | 2021-01-11 06:10 | NUR ---
MS/TELE/RN PATIENT IS AWAKE, CALM AND COMFORTABLE, NO DISTRESS NOTED, ON AND OFF SLEEP NOTED THE WHOLE SHIFT, SITTER AT BEDSIDE, ALL NEEDS ATTENDED AT THIS TIME. WILL CONTINUE TO MONITOR.
[2021-01-11] MEDS: MEGESTROL ACETATE 40 MG TABLET PO SCH (08:32)
[2021-01-11] MEDS: ASPIRIN 81 MG TAB.CHEW PO SCH (08:32)
[2021-01-11] MEDS: PANTOPRAZOLE 40 MG TABLET.DR PO SCH (08:32)
[2021-01-11 08:33] VITALS: BP 95/60
[2021-01-11] MEDS: METOPROLOL SUCCINATE 25 MG TAB.SR.24H PO SCH (08:33)
[2021-01-11] MEDS: ENSURE ENLIVE 237 ML LIQUID (VANILLA) PO SCH ×2 (08:35→13:43)
[2021-01-11 09:21] LABS: BASOPHILS # (AUTO) 0.1 /CMM (0.0-0.2); BASOPHILS % (AUTO) 1.2 % (0.0-2.0); EOSINOPHILS % (AUTO) 1.6 % (0.0-6.0); HEMATOCRIT 35 % (39-51); HEMOGLOBIN 11.9 g/dL (13.5-17.5); LYMPHOCYTES # (AUTO) 1.1 /CMM (0.8-4.8); LYMPHOCYTES % (AUTO) 13.5 % (20.0-44.0); MEAN CORPUSCULAR HGB CONC 34 g/dl (31.0-36.0); MEAN CORPUSCULAR VOLUME 99 fL (80-96); MONOCYTES # (AUTO) 0.6 /CMM (0.1-1.30); MONOCYTES % (AUTO) 7.6 % (2.0-12.0); NEUTROPHILS # (AUTO) 6.2 /CMM (1.8-8.9); NEUTROPHILS % (AUTO) 76.1 % (43.0-81.0); PLATELET COUNT (AUTO) 273 /CMM (150-450); RED BLOOD CELL COUNT(AUTO) 3.56 MIL/uL (4.5-6.0); WHITE BLOOD COUNT (AUTO) 8.1 K/uL (4.3-11.0)
[2021-01-11 09:56] LABS: CALCIUM, SERUM 8.8 mg/dL (8.5-10.1); CREATININE 0.8 mg/dL (0.6-1.3); PHOSPHORUS 2.2 mg/dL (2.5-4.9); POTASSIUM 3.3 mmol/L (3.5-5.1)
[2021-01-11] MEDS ORDERED: PANT40TA2 PO (12:13)
[2021-01-11] MEDS ORDERED: MEGE40TA5 PO (12:13)
[2021-01-11] MEDS ORDERED: ONDA4TAB5 PO (12:13)
[2021-01-11] MEDS ORDERED: MIRT7.5T10 PO (12:13)
[2021-01-11] MEDS ORDERED: ENOX40DI SQ (12:13)
[2021-01-11] MEDS ORDERED: K PHOS NEUTRAL 250 MG TABLET PO ONE (14:30)
[2021-01-11] MEDS ORDERED: POTASSIUM CHLORIDE 20 MEQ TAB.PRT.SR PO SCH (14:30)
[2021-01-11] MEDS ORDERED: POTASSIUM CHLORIDE 20 MEQ TAB.PRT.SR PO ONE (15:34)
--- NOTE | 2021-01-11 16:00 | NUR ---
PATIENT MEDICALLY STABLE AND DISCHARGED BY DR. ROSARIO TO BE TRANSFERRED TO [facility]. ENDORSEMENT GIVEN TO ADRYAN RIVERA AT [facility]. PATIENT IS ALERT AND ORIENTED X2, ABLE TO MAKE NEEDS KNOWN. AMBULATORY. V/S FOLLOWS BP 109/61, HR-87, T-97.4, RR-18. STABLE ON ROOM AIR WITH O2 SAT OF 98%. NO DISTRESS NOTED AT THIS TIME. PERIODS OF CRYING NOTED. WHEELED DOWN TO [facility] GOING TO BED 212-A.
== END 2021-01-11 16:16 | DRG 640 ==
LOC: TELE 18:11
PROVIDERS: ADMIT Registered Nurse; ATTEND Nurse Practitioner Acute Care
DX: E86.0 Dehydration (principal); J15.9 Unspecified bacterial pneumonia; N17.9 Acute kidney failure, unspecified; R45.851 Suicidal ideations; J98.11 Atelectasis; E44.0 Moderate protein-calorie malnutrition; R62.7 Adult failure to thrive; E87.6 Hypokalemia; E83.52 Hypercalcemia; E83.39 Other disorders of phosphorus metabolism; F29 Unspecified psychosis not due to a substance or known physiological condition; Z91.81 History of falling; Z91.14 Patient's other noncompliance with medication regimen; Z79.82 Long term (current) use of aspirin; Z79.899 Other long term (current) drug therapy; I10 Essential (primary) hypertension; E83.42 Hypomagnesemia; F32.9 Major depressive disorder, single episode, unspecified; G31.83 Neurocognitive disorder with Lewy bodies; F02.80 Dementia in other diseases classified elsewhere, unspecified severity, without behavioral disturbance, psychotic disturbance, mood disturbance, and anxiety; F39 Unspecified mood [affective] disorder; Y95 Nosocomial condition
CPT/HCPCS: 36415; 71045-TC; 80048-TC; 80053-TC; 80076-TC; 80202-TC; 81001; 82140-TC; 83735-TC; 84100-TC; 85025-TC; 87040-TC; 87081-TC; 92526; 92611-TC; C9113; G0378; J1650; J2543; J3370; J3475; J7030; J7060

== ENCOUNTER 2021-01-11 11:43 | Inpatient (IN) | payer MEDICARE ==
[~2021-01-11] VITALS: Ht 172.7 cm; Wt 56.2 kg
[2021-01-11] MEDS ORDERED: MIRT7.5T10 PO (12:13)
[2021-01-11] MEDS ORDERED: MEGE40TA5 PO (12:13)
[2021-01-11] MEDS ORDERED: PANT40TA2 PO (12:13)
[2021-01-11] MEDS ORDERED: ENOX40DI SQ (12:13)
[2021-01-11] MEDS ORDERED: ONDA4TAB5 PO (12:13)
--- NOTE | 2021-01-11 16:25 | NUR ---
RN NOTE- PT READMITTED TO THIS UNIT AFTER A STAY ON MED SURG FOR PNA. PT RECEIVED FLUIDS ON MED SURG AND LABS IMPROVED DRAMATICALLY . PT ARRIVED ON UNIT VIA WCR. ALERT ORIENTED TO PERSON PLACE. SOME CONFUSION NOTED W DATE. ON FACE TO FACE ASSESSMENT, PT INTERACTIVE ALERT AND RESPONDING TO QUERY. VS- BP- 108/66, HR- 97, RR- 18, T- 98.4, SATS 98% RA. ACCU CHECK BS- 128. DR ELLER NOTIFIED OF ADMISSION, ORDERS RECEIVED AND CARRIED OUT. PMHX- DEMENTIA, PNA, PSYCHOSIS, FAILURE TO THRIVE , UTI. ORIENTED TO UNIT AND ASSISTED. DR HUNTER NOTIFIED OF ADMISSION.
[2021-01-11] MEDS ORDERED: ACETAMINOPHEN 325 MG TABLET PO PRN ×2 (16:30→17:30)
[2021-01-11] MEDS ORDERED: ZOLPIDEM TARTRATE 5 MG TABLET PO PRN (16:30)
[2021-01-11] MEDS ORDERED: MAG HYDROX/AL HYDROX/SIMETH 30 ML UDC PO PRN (16:30)
[2021-01-11] MEDS ORDERED: BLOOD SUGAR DIAGNOSTIC 1 EACH STRIP IN ONE (16:30)
[2021-01-11] MEDS ORDERED: MAGNESIUM HYDROXIDE 30 ML UDC PO PRN ×2 (16:30→17:30)
[2021-01-11] MEDS ORDERED: LORAZEPAM 1 MG TABLET PO PRN (16:30)
[2021-01-11] MEDS ORDERED: Z GUARD REMEDY 2 OZ OINT TP PRN ×2 (17:00→17:30)
--- NOTE | 2021-01-11 17:00 | NUR ---
GPS CHILD WELFARE WORKER: NOTES RAMON (BROTHER,[phone]) NOTIFIED AND MADE AWARE OF RE ADMISSION TO FLOOR, SPOKE TO HIM OVER THE PHONE.
[2021-01-11 20:00] VITALS: BP 103/67
[2021-01-11] MEDS: ENOXAPARIN SODIUM 40 MG/0.4 ML DISP.SYRIN SQ SCH (22:10)
[2021-01-11] MEDS: Z GUARD REMEDY 2 OZ OINT TP SCH (22:11)
--- NOTE | 2021-01-12 05:32 | NUR ---
GPS RN CLOSING NOTE PATIENT SLEEPING IN BED A/OX2; FORGETFUL. TOLERATING ROOM AIR WELL WITH NO SOB. COOPERATIVE WITH CARE. NO SI/HI AT THIS TIME. DENIES PAIN / DISCOMFORT AT THIS TIME. SAFETY MEASURES IN PLACE: BED IN LOWEST LOCKED POSITION, SIDE RAILS UPX3, EDUCATED TO USE CALL LIGHT, BED ALARMS ON. ALL NEEDS ATTENDED AND ANTICIPATED. WILL ENDORSE CARE PLAN FOR MONITORING FOR SAFETY AND BEHAVIOR TO MORNING RN.
[2021-01-12 07:02] LABS: ALBUMIN 2.2 g/dL (3.4-5.0); BILIRUBIN,TOTAL 0.4 mg/dL (0.2-1.0); CALCIUM, SERUM 9.2 mg/dL (8.5-10.1); CREATININE 0.7 mg/dL (0.6-1.3); POTASSIUM 3.5 mmol/L (3.5-5.1); TOTAL PROTEIN, SERUM 5.3 g/dL (6.4-8.2)
[2021-01-12 07:15] LABS: CHOLESTEROL 143 mg/dL (<200); HDL CHOLESTEROL 37 mg/dL (40-60); LDL 87 mg/dL (0-99); TRIGLYCERIDES 104 mg/dL (30-150)
[2021-01-12] MEDS: PANTOPRAZOLE 40 MG TABLET.DR PO SCH (07:32)
[2021-01-12 08:00] VITALS: BP 110/60
[2021-01-12] MEDS: MEGESTROL ACETATE 40 MG TABLET PO SCH ×2 (08:32→17:01)
[2021-01-12] MEDS: ASPIRIN 81 MG TAB.CHEW PO SCH (08:32)
[2021-01-12] MEDS: METOPROLOL SUCCINATE 25 MG TAB.SR.24H PO SCH (08:33)
[2021-01-12] MEDS: Z GUARD REMEDY 2 OZ OINT TP SCH ×2 (08:35→21:00)
[2021-01-12] MEDS: ENSURE ENLIVE 237 ML LIQUID (VANILLA) PO SCH ×3 (08:35→17:01)
[2021-01-12] MEDS ORDERED: HYDROGEL DRESSING 90 GM TUBE TP SCH (09:00)
--- NOTE | 2021-01-12 09:00 | NUR ---
RN NOTE- PT IN BED ALERT ORIENTED PERSON PLACE MED COMPLIANT PO INTAKE FAIR DRINKING FLUIDS MUCH MORE ALERT AND INTERACTIVE
--- NOTE | 2021-01-12 09:36 | NUR ---
WOUND CARE CONSULT: PT PRESENTS WITH MOISTURE ASSOCIATED SKIN DAMAGE TO RT INNER BUTTOCK, PRESENT ON ADMISSION. RECOMMENDATIONS MADE FOR SKIN PROTECTION. DISCUSSED WITH NURSING STAFF. IN AGREEMENT WITH PLAN OF CARE. Addendum: 01/12/21 at 0937 by EWELINA LACEY WNDNU Amended: Links added.
--- NOTE | 2021-01-12 11:28 | NUR ---
SNF Referral: STACY faxed a referral to [facility] with attn to Cammy to the fax number: [phone].
--- NOTE | 2021-01-12 13:46 | NUR ---
SNF Contact: Rubia ([phone]) from [facility] contacted the SW and stated that the pt was accepted to their facility.
[2021-01-12 16:00] VITALS: BP 122/70
[2021-01-12 20:07] VITALS: BP 99/61
[2021-01-12] MEDS: ENOXAPARIN SODIUM 40 MG/0.4 ML DISP.SYRIN SQ SCH (20:52)
[2021-01-12] MEDS: MIRTAZAPINE 15 MG TABLET PO SCH (21:10)
[2021-01-12] MEDS: OLANZAPINE 2.5 MG TABLET PO SCH (21:10)
--- NOTE | 2021-01-13 06:38 | NUR ---
GPS RN CLOSING NOTES: PATIENT IS LAYING IN BED, AWAKE, A/O X1-2. PATIENT SLEPT 8HRS THIS SHIFT. PATIENT CLEANED AND G-GUARD CREAM APPLIED TO SACRAL AREA AT 0549. NO S/S OF DISTRESS. RESPIRATION EVEN AND UNLABORED WITH EQUAL RISE AND FALL OF THE CHEST ON ROOM AIR. ALL PATIENT CARE NEEDS HAVE BEEN MET ANTICIPATED. WILL CONTINUE TO MONITOR FOR SAFETY, MOOD AND BEHAVIOR AND ENDORSE TO AM SHIFT.
[2021-01-13 08:00] VITALS: BP 102/60
[2021-01-13] MEDS: ASPIRIN 81 MG TAB.CHEW PO SCH (08:03)
[2021-01-13] MEDS: PANTOPRAZOLE 40 MG TABLET.DR PO SCH (08:03)
[2021-01-13] MEDS: MEGESTROL ACETATE 40 MG TABLET PO SCH ×2 (08:03→16:32)
[2021-01-13] MEDS: ENSURE ENLIVE 237 ML LIQUID (VANILLA) PO SCH ×3 (08:07→16:32)
[2021-01-13] MEDS: Z GUARD REMEDY 2 OZ OINT TP SCH ×2 (08:08→21:23)
[2021-01-13] MEDS: METOPROLOL SUCCINATE 25 MG TAB.SR.24H PO SCH (08:08)
--- NOTE | 2021-01-13 09:00 | NUR ---
RN NOTE- ORIENTED PERSON PLACE MED COMPLIANT PO INTAKE FAIR DRINKING FLUIDS MUCH MORE ALERT AND INTERACTIVE
--- NOTE | 2021-01-13 13:44 | NUR ---
Family Contact: SW called the pPts son, Galdino ([phone]), and left a voicemail to inform him that the pt is going to be discharged to [facility].
[2021-01-13 16:00] VITALS: BP 92/57
[2021-01-13 19:34] VITALS: BP 124/57
[2021-01-13] MEDS: ENOXAPARIN SODIUM 40 MG/0.4 ML DISP.SYRIN SQ SCH (21:13)
[2021-01-13] MEDS: OLANZAPINE 2.5 MG TABLET PO SCH (21:14)
[2021-01-13] MEDS: MIRTAZAPINE 15 MG TABLET PO SCH (21:14)
--- NOTE | 2021-01-14 06:38 | NUR ---
GPS RN CLOSING NOTES: PATIENT IS LAYING IN BED, AWAKE, A/O X1-2. PATIENT SLEPT 8HRS THIS SHIFT. PATIENT CLEANED AND G-GUARD CREAM APPLIED TO SACRAL AREA AT 0610. PATIENT IS SCHEDULED TO BE DISCHARGED TODAY AT 1300. COVID SWAB DONE AND TAKEN TO LAB. NO S/S OF DISTRESS. RESPIRATION EVEN AND UNLABORED WITH EQUAL RISE AND FALL OF THE CHEST ON ROOM AIR. ALL PATIENT CARE NEEDS HAVE BEEN MET ANTICIPATED. WILL CONTINUE TO MONITOR FOR SAFETY, MOOD AND BEHAVIOR AND ENDORSE TO AM SHIFT.
[2021-01-14 08:00] VITALS: BP 124/59
[2021-01-14] MEDS: MEGESTROL ACETATE 40 MG TABLET PO SCH (08:27)
[2021-01-14] MEDS: ASPIRIN 81 MG TAB.CHEW PO SCH (08:27)
[2021-01-14] MEDS: ENSURE ENLIVE 237 ML LIQUID (VANILLA) PO SCH ×2 (08:28→12:40)
[2021-01-14 08:33] VITALS: BP 124/59
[2021-01-14] MEDS: METOPROLOL SUCCINATE 25 MG TAB.SR.24H PO SCH (08:33)
[2021-01-14] MEDS: PANTOPRAZOLE 40 MG TABLET.DR PO SCH (08:33)
[2021-01-14] MEDS: Z GUARD REMEDY 2 OZ OINT TP SCH (11:01)
--- NOTE | 2021-01-14 14:11 | NUR ---
GPS CORNER CUTTER MACHINE OPERATOR NOTE: PATIENT DISCHARGE TO [facility] LOCATED AT [id number] [place] [id number]. PATIENT DISCHARGE IN STABLE CONDITIONS, VSS, DENIES SI/HI AVH .PATIENT AMBULATORY WITH ASSIST, COMPLIANT WITH MEDICATIONS AND TX. EXIT CARE DONE, PATIENT REFUSED TO SIGN, GIVEN TO PT. PATIENT HAD NO BELONGINGS PER ADMITTING BELONGING PAPER. PATIENT MICHEL PEPE NOTIFIED AND AGREED. DC HOLD, DC PT TO SNF PER . PATIENT SKIN CHECKED NOTED SKIN SACRAL AREA INTACT NO REDNESS NOTED, PICTURE PLACED IN THE CHART.REPORT GIVEN TO BRYANT CORNELIUS IN THE FACILITY.
--- NOTE | 2021-01-14 15:37 | NUR ---
Discharge Note; Pt will be discharged to [facility] (SNF) located at [address] [place] [address]; ([phone]). Pt will ve transported via [facility] at 1pm. Pts son, Galdino ([phone]), was notified of the placement and agreed to it. Upon discharge, the pt appeared to be in a euthymic mood with a calm affect. Pt appeared to be oriented x2 (time and self). Pt denied both suicidal and homicidal ideation as well as auditory and visual hallucinations. Pt will be under the care of his psychiatrist, Dr. Junior, located at [address], [place] [address]; and his sales strategy manager, Dr. Chua, located at [address] [facility], [address] [place] [address]; . The multidisciplinary exit care form was done, printed, signed, and given to the patient.
== END 2021-01-14 13:30 | DRG 885 ==
LOC: GPS 11:43
PROVIDERS: ADMIT Psychiatry & Neurology Psychiatry; ATTEND Internal Medicine
DX: F39 Unspecified mood [affective] disorder (principal); E44.0 Moderate protein-calorie malnutrition; Z68.1 Body mass index [BMI] 19.9 or less, adult; F02.81 Dementia in other diseases classified elsewhere, unspecified severity, with behavioral disturbance; F29 Unspecified psychosis not due to a substance or known physiological condition; F41.9 Anxiety disorder, unspecified; E78.5 Hyperlipidemia, unspecified; E83.42 Hypomagnesemia; E86.0 Dehydration; E87.6 Hypokalemia; F32.9 Major depressive disorder, single episode, unspecified; I10 Essential (primary) hypertension; R62.7 Adult failure to thrive; E88.09 Other disorders of plasma-protein metabolism, not elsewhere classified; M62.50 Muscle wasting and atrophy, not elsewhere classified, unspecified site; G31.83 Neurocognitive disorder with Lewy bodies; Z20.822 Contact with and (suspected) exposure to COVID-19
CPT/HCPCS: 36415; 80053-TC; 80061-TC; 82962-TC; 97116-TC; 97530-TC; A6248; J1650

== ENCOUNTER 2021-01-22 20:16 | Inpatient (IN) | payer MEDICARE ==
[~2021-01-22] VITALS: Ht 172.7 cm; Wt 52.6 kg
[2021-01-22] VITALS: BP 123/84
[~2021-01-22 20:16] MED LIST changes: -AZIT500T PO; +ENOX40DI SQ; +MEGE40TA5 PO; +MIRT7.5T10 PO; -OLAN2.5T3 PO; +ONDA4TAB5 PO; +PANT40TA2 PO
--- NOTE | 2021-01-22 20:19 | NUR ---
PT BIBPA C/O POOR INTAKE. PT AAOX4 BREATHING EVENLY AND UNLABORED. PT DENIES ANY MEDICAL PROBLEMS AND STATES " I EAT WHEN I FEEL LIKE IT". PT ATTACHED TO MONITOR AND POX. BLOOD DRAWN AND SENT TO LAB. AT BEDSIDE FOR EVAL. PT GIVEN BLANKET AND CALL LIGHT WITHIN REACH
[2021-01-22] MEDS ORDERED: IV NS 0.9% 1,000 ML BAG IV ONE (20:30)
--- NOTE | 2021-01-22 20:43 | NUR ---
donato Crooks- Dr. Ang would like to discuss to him about the patient.
--- NOTE | 2021-01-22 21:00 | NUR ---
XRAY AT BEDSIDE
[2021-01-22 21:02] LABS: BASOPHILS # (AUTO) 0.1 K/uL (0.0-0.2); BASOPHILS % (AUTO) 1.1 % (0.0-2.0); EOSINOPHILS % (AUTO) 2.2 % (0.0-6.0); HEMATOCRIT 37 % (39-51); HEMOGLOBIN 12.6 g/dL (13.5-17.5); LYMPHOCYTES # (AUTO) 1.1 K/uL (0.8-4.8); LYMPHOCYTES % (AUTO) 11.2 % (20.0-44.0); MEAN CORPUSCULAR HGB CONC 34 g/dl (31.0-36.0); MEAN CORPUSCULAR VOLUME 98 fL (80-96); MONOCYTES # (AUTO) 0.6 K/uL (0.1-1.30); NEUTROPHILS # (AUTO) 8.2 K/uL (1.8-8.9); NEUTROPHILS % (AUTO) 79.5 % (43.0-81.0); PLATELET COUNT (AUTO) 381 K/uL (150-450); RED BLOOD CELL COUNT(AUTO) 3.76 MIL/uL (4.5-6.0); WHITE BLOOD COUNT (AUTO) 10.3 K/uL (4.3-11.0)
--- NOTE | 2021-01-22 21:03 | NUR ---
COVID SWAB SENT TO LAB
[2021-01-22 21:11] LABS: CALCIUM, SERUM 11.1 mg/dL (8.5-10.1); CARBON DIOXIDE 24 mmol/L (21-32); CHLORIDE 106 mmol/L (98-107); CREATININE 0.8 mg/dL (0.6-1.3); GLUCOSE 99 mg/dL (74-106); POTASSIUM 3.7 mmol/L (3.5-5.1); SODIUM SERUM 136 mmol/L (136-145); UREA NITROGEN, BLOOD 7 mg/dL (7-18)
--- NOTE | 2021-01-22 21:12 | NUR ---
URINE SENT TO LAB
[2021-01-22 21:16] LABS: ALANINE AMINOTRANSFERASE 12 U/L (12-78); ALBUMIN 2.6 g/dL (3.4-5.0); ALKALINE PHOSPHATASE 66 U/L (46-116); ASPARTATE AMINOTRANSFERASE 11 U/L (15-37); BILIRUBIN,DIRECT 0.1 mg/dL (0.0-0.2); BILIRUBIN,TOTAL 0.5 mg/dL (0.2-1.0); LIPASE 59 U/L (73-393); TOTAL PROTEIN, SERUM 6.5 g/dL (6.4-8.2)
[2021-01-22 21:31] LABS: BILIRUBIN,URINE NEGATIVE (NEGATIVE); COLOR,URINE YELLOW (YELLOW); LEUKOCYTE ESTERASE ,URINE NEGATIVE (NEGATIVE); NITRITE, URINE NEGATIVE (NEGATIVE); PROTEIN,URINE NEGATIVE (NEGATIVE); UGLUCOSE NEGATIVE (NEGATIVE); UROBILINOGEN,URINE 0.2 EU/dL (0.2)
--- NOTE | 2021-01-22 21:31 | NUR ---
CATHY SENT TO LAB
--- NOTE | 2021-01-22 21:31 | NUR ---
[facility] communication spec paged via exchange
[2021-01-22 21:45] LABS: BACTERIA,URINE None seen /HPF (None Seen); MUCUS,URINE Few /LPF (None Seen); SQUAMOUS EPITHELIAL CELL,UR 0-2 /HPF (None Seen); WBC,URINE 0-2 /HPF (0-3)
--- NOTE | 2021-01-22 22:29 | NUR ---
report given to the floor nurse - continue plan of care.
[2021-01-22] MEDS ORDERED: MAGNESIUM HYDROXIDE 30 ML UDC PO PRN ×2 (22:30)
[2021-01-22] MEDS ORDERED: Medication Not On Formulary EA (Mag Hydrox/Al Hydrox/Simeth (Maalox Maximum Strength Sus PO PRN (22:30)
[2021-01-22] MEDS ORDERED: ACETAMINOPHEN 325 MG TABLET PO PRN (22:30)
[2021-01-22] MEDS ORDERED: Z GUARD REMEDY 2 OZ OINT TP PRN (22:30)
[2021-01-22] MEDS ORDERED: LORAZEPAM 1 MG TABLET PO PRN (22:30)
[2021-01-22] MEDS ORDERED: MAG HYDROX/AL HYDROX/SIMETH 30 ML UDC PO PRN (22:30)
[2021-01-22 22:45] VITALS: BP 111/67
--- NOTE | 2021-01-22 22:45 | NUR ---
ADMISSION NOTE [facility] TO KATELYNN PATEL YEAST FERMENTATION ATTENDANT. DX OF FAILURE TO THRIVE. NEW ORDERS RECIEVED. CC: [facility] AND PER THE NURSING REPORT FROM FACILITY PATIENT HAS BEEN SKIPPING MEALS FREQUENTLY EATING ROUGHLY ONE A DAY AND DOES NOT APPEAR TO BE DRINKING ENOUGH FLUID. A NOTE ALSO INDICATES THAT PATIENT WAS SENT HERE BECAUSE PRIMARY MEDICAL DOCTOR AT THE FACILITY [facility] IS EVALUATING THE POSSIBLE NEED FOR ENTERAL PLACEMENT. ALSO OF NOTE PATIENT WAS TAKING ABX FOR PNA RECENTLY. PATIENT IS ALERT AND ORIENTED X2 PERSON AND DATE, PT DENIES NOT EATING BUT STATES "WELL I WALK 7 MILES A DAY, THERE IS NOTHING WRONG WITH ME." ADMISSION ASSESSMENT COMPLETED WITH PREVIOUS EDICAL RECORDS OF PICTURE ROCKS. PATIENT ORIENTED TO ROOM. BED DODWN LOCKED SRX3 CALL LIGHT PLACED WITHIN REACH. PT VERBALIZED UNDERSTANDING HOW TO USI IT. BED ALARM ACTIVATED AND PT VERBALIZED UNDERSTANDING TO CALL FOR ASSISTANCE IF NEEDED. WILL CONT TO MONITOR.
[2021-01-22] MEDS ORDERED: ONDANSETRON 4 MG TAB.RAPDIS PO PRN (23:00)
--- NOTE | 2021-01-22 23:25 | NUR ---
NURSING SWALLOW SCREEN. PATIENT UNABLE TO SWALLOW SPOON FULL OF WATER WITHOUT COUGHING. PER NURSING SWALLOW EVAL SCREENING WAS STOPPED. PT FAILED SWALLOW SCREEN TO REMAIN NPO.
--- NOTE | 2021-01-22 23:35 | NUR ---
sukh inspector final assembly mechanical at bedside to eval patient. notified of nursing swall eval results. new order for npo except ice chips and meds recieved. swallow eval changed to stat order.
[2021-01-22] MEDS: IV D5/0.45 NACL 1,000 ML IV PRN (23:41)
[2021-01-23] VITALS: BP 122/72
[2021-01-23 04:00] VITALS: BP 96/52
[2021-01-23] MEDS ORDERED: MAG HYDROX/AL HYDROX/SIMETH 30 ML UDC PO PRN (06:23)
[2021-01-23 06:41] LABS: BASOPHILS # (AUTO) 0.1 K/uL (0.0-0.2); EOSINOPHILS % (AUTO) 3.4 % (0.0-6.0); HEMATOCRIT 37 % (39-51); HEMOGLOBIN 12.4 g/dL (13.5-17.5); LYMPHOCYTES # (AUTO) 1.3 K/uL (0.8-4.8); LYMPHOCYTES % (AUTO) 15.2 % (20.0-44.0); MEAN CORPUSCULAR HGB CONC 34 g/dl (31.0-36.0); MEAN CORPUSCULAR VOLUME 99 fL (80-96); MONOCYTES # (AUTO) 0.6 K/uL (0.1-1.30); MONOCYTES % (AUTO) 7.1 % (2.0-12.0); NEUTROPHILS % (AUTO) 73.3 % (43.0-81.0); PLATELET COUNT (AUTO) 377 K/uL (150-450); RED BLOOD CELL COUNT(AUTO) 3.72 MIL/uL (4.5-6.0); WHITE BLOOD COUNT (AUTO) 8.2 K/uL (4.3-11.0)
[2021-01-23 06:52] LABS: PREALBUMIN 12.7 MG/DL (18.0-35.7)
[2021-01-23 06:57] LABS: CALCIUM, SERUM 10.7 mg/dL (8.5-10.1); CREATININE 0.8 mg/dL (0.6-1.3); MAGNESIUM 1.6 mg/dL (1.8-2.4); PHOSPHORUS 2.5 mg/dL (2.5-4.9); POTASSIUM 3.4 mmol/L (3.5-5.1)
[2021-01-23] MEDS: PANTOPRAZOLE 40 MG TABLET.DR PO SCH (07:30)
[2021-01-23 08:00] VITALS: BP 116/66
--- NOTE | 2021-01-23 08:00 | NUR ---
RN NOTE PT FAILED BEDSIDE SWALLOW EVAL. RETAINED APPLESAUCE IN MOUTH FOR 2MIN AND COUGHED WHEN ATTEMPTING TO SWALLOW. PT IS CONFUSED. UNABLE TO GIVE PO MEDS. DR FELIX AWARE
[2021-01-23] MEDS: MEGESTROL ACETATE 40 MG TABLET PO SCH ×2 (09:00→17:00)
[2021-01-23] MEDS: ASPIRIN 81 MG TAB.CHEW PO SCH (09:00)
[2021-01-23] MEDS: METOPROLOL SUCCINATE 25 MG TAB.SR.24H PO SCH (09:00)
[2021-01-23] MEDS: ENSURE ENLIVE 237 ML LIQUID (VANILLA) PO SCH ×3 (09:00→17:00)
[2021-01-23] MEDS: ENOXAPARIN SODIUM 40 MG/0.4 ML DISP.SYRIN SQ SCH (09:37)
[2021-01-23] MEDS: POTASSIUM CL. PREMIX PERIPHER. 50 ML IV SCH ×4 (10:05→13:50)
[2021-01-23 12:00] VITALS: BP 103/73
--- NOTE | 2021-01-23 14:18 | NUR ---
RN OPENING NOTE PT IN BED HIGH KRAMER'S BREATHING RA SPO2 96%, NO S/S OF RESP DISTRESS OR SOB. PT A/Ox1, CONFUSED, DENIES PAIN AT THIS MOMENT. PT AMBULATORY WITH ONE ASSIST. PT HAS RT WRIST #22 RUNNING D5 1/2 NS @ 75 ML/HR, FLUSHED, PATENT AND INTACT, NO SIGNS OF INFECTION/INFILTRATION. PT HAS RT GLUTE SKIN TEAR, MEPILEX. ALL PT SAFETY/ASPIRATION PRECAUTIONS IN PLACE, WILL CONT TO MONITOR
[2021-01-23] MEDS: Magnesium 1GM/D5W 100ML PREMIX 100 ML IV SCH ×2 (14:40→15:56)
[2021-01-23 16:00] VITALS: BP 104/63
--- NOTE | 2021-01-23 19:00 | NUR ---
RN CLOSING NOTE PT IN STABLE CONDITION. PT FAILED 2ND BEDSIDE SWALLOW EVAL, COUGHING AND NEAR CHOKING. KEEP NPO FOR NOW. POSSIBLE PEG TUBE PLACEMENT PENDING PT'A ABILITY TO SWALLOW/EAT FOOD. ASPIRATION AND ALL SAFETY PRECAUTIONS IN PLACE. KRYS ENDORSED TO FURNITURE MAKER RN
--- NOTE | 2021-01-23 19:20 | NUR ---
RN OPENING NOTE RECD PT IN BED. PT IS A/O X1. CONFUSED. PT RESPONDS TO NAME, ALERT. FORGETFUL OF WHERE HE IS. REORIENTED PT, PT VERBALIZES UNDERSTANDING. PT IS ON ROOM AIR NO DISTRESS NOTED. NO SOB. BREATHING EVEN AND UNLABORED. PT IS ON MED SURG MONITORING. PT HAS RIGHT WRIST IV SITE, WITH IVF RUNNING ORDERED. NO S/S OF INFILTRATION NOTED AT THIS TIME. REMINDED PT TO STAY IN BED FOR SAFETY, PT PASSIVE IN RESPONSE. SAFETY MEASURES IN PLACE. SIDE RAILS UP X3 HOB ELEVATED BED LOCKED IN LOWEST POSITION WITH BED ALARM UPPER LEATHER SORTER LIGHT WITHIN REACH. WILL CONT TO MONITOR CLOSELY FOR SAFETY AND CHANGE OF CONDITION THROUGHOUT SHIFT.
[2021-01-23 20:00] VITALS: BP 113/75
[2021-01-23] MEDS: MIRTAZAPINE 15 MG TABLET PO SCH (22:00)
[2021-01-23] MEDS: IV D5/0.45 NACL 1,000 ML IV PRN (22:49)
--- NOTE | 2021-01-24 02:04 | NUR ---
RN NOTE PT IS CONFUSED, CONTINUES TO GET OUT OF BED. PT GAIT IS STEADY, STAND BY ASSIST FOR SAFETY. BED ALARM ON. WILL CONTINUE TO MONITOR CLOSELY.
[2021-01-24 04:00] VITALS: BP 105/66
[2021-01-24] MEDS: PANTOPRAZOLE 40 MG TABLET.DR PO SCH (07:30)
--- NOTE | 2021-01-24 07:30 | NUR ---
RECEIVED PATIENT AWAKE IN BED, ALERTX1, CONFUSION NOTED. RE-ORIENTED PATIENT ON WHERE HE IS. NO DISTRESS NOTED AT THIS TIME, ON ROOM AIR. SKIN INTACT. CURRENTLY ON NPO. IV ACCESS ON RIGHT FA IS INTACT WITH A RUNNING D5 1/2 NS@75 ML/HR. SAFETY PRECAUTIONS IN PLACED. BED LOCKED ON LOWEST POSITION, HOB ELEVATED, SIDE RAILS UPX3, WILL CONTINUE TO MONITOR PATIENT.
[2021-01-24 07:50] LABS: CREATININE 0.6 mg/dL (0.6-1.3); MAGNESIUM 1.9 mg/dL (1.8-2.4); POTASSIUM 3.9 mmol/L (3.5-5.1)
--- NOTE | 2021-01-24 07:57 | NUR ---
RN NOTE NO CHANGES IN PT CONDITION. KEPT CLOSE MONITORING ON PT HE IS A FALL RISK AND GETS OUT OF BED. STILL ON ROOM AIR, NO DISTRESS NOTED. BED BATH DONE, ALL NEEDS ATTENDED. EDUCATION PROVIDED. SAFETY MEASURES IN PLACE. BED ALARM ON. CALL LIGHT WITHIN REACH. ENDORSED TO ADRYAN HOLM FOR CONTINUATION OF CARE
[2021-01-24] MEDS: ASPIRIN 81 MG TAB.CHEW PO SCH (09:00)
[2021-01-24] MEDS: METOPROLOL SUCCINATE 25 MG TAB.SR.24H PO SCH (09:00)
[2021-01-24] MEDS: ENSURE ENLIVE 237 ML LIQUID (VANILLA) PO SCH ×3 (09:00→17:00)
[2021-01-24] MEDS: MEGESTROL ACETATE 40 MG TABLET PO SCH ×2 (09:00→17:00)
--- NOTE | 2021-01-24 09:24 | NUR ---
MS/RN NOTES PATIENT COUGHING WHEN HAVING SIPS OF WATER. NOTIFIED DR. FELIX THAT PATIENT IS HIGH RISK FOR ASPIRATION IF GIVEN PO MEDS. PER DR. FELIX, HOLD ALL PO MEDICATIONS. SAID DR. IBARRA SUPPOSEDLY WILL DO PEG TUBE TODAY. WILL CONTINUE TO MONITOR.
[2021-01-24] MEDS: ENOXAPARIN SODIUM 40 MG/0.4 ML DISP.SYRIN SQ SCH (11:03)
[2021-01-24 12:16] VITALS: BP 105/66
--- NOTE | 2021-01-24 16:21 | NUR ---
MS/RN NOTES PATIENT AWAKE, ALERT AND ORIENTED X2, CONFUSED BUT ABLE TO MAKE NEEDS KNOWN. PATIENT WILL UNDERGO EGD TUBE PLACEMENT DUE TO PATIENT UNABLE TO SWALLOW ANYTHING BY MOUTH. EGD WILL BE DONE BY DR. IBARRA. ALL CONSENTS SIGNED AND CHECKLIST IN PLACED. PATIENT'S BROTHER IS AWARE AND AGREED FOR THE PROCEDURE. AUTOMOBILE RELOCATION ENGINEERDIESEL LOCOMOTIVE CRANE OPERATOR PICKED UP PATIENT FOR SURGERY.
--- NOTE | 2021-01-24 17:28 | NUR ---
MS/RN RECEIVING NOTES PATIENT CAME BACK FROM EGD PROCEDURE. AWAKE, ALERT AND ORIENTED X2. ABLE TO MAKE NEEDS KNOWN. STABLE ON ROOM AIR. NO PAIN REPORTED AT THIS TIME. V/S TAKEN AND RECORDED FOLLOWS : BP 123/84, RR-18, HR 89, T-98.6 O2 SAT AT 97%. MD ORDERED TUBE FEEDING TO START TOMORROW AM. WILL CONTINUE TO MONITOR.
--- NOTE | 2021-01-24 19:30 | NUR ---
RN OPENING NOTE RECD PT IN BED. PT IS A/O X1. PT RESPONDS TO NAME. PT IS ON ROOM AIR NO RESP. DISTRESS NOTED. NO SOB. PT ON MED SURG MONITORING. PT HAS 22G RIGHT FOREARM IV LINE INFUSING D5 1/2 NS RUNNING AT 75ML/HR. IV LINE FLUSHED, PATENT WITH NO SIGNS OF INFILTRATION. SAFETY MEASURES IN PLACE. SIDE RAILS UP X3. HOB ELEVATED. BED LOCKED IN LOWEST POSITION WITH BED ALARM ON. CALL LIGHT WITHIN REACH. WILL CONTINUE TO MONITOR THROUGHOUT SHIFT.
--- NOTE | 2021-01-24 19:32 | NUR ---
MS/RN CLOSING NOTES PATIENT AWAKE IN BED, ALERTX2, CONFUSION NOTED. NO DISTRESS NOTED AT THIS TIME, ON ROOM AIR. POST-G-TUBE PLACEMENT. CAN RESUME MEDS AND START G-TUBE FEEDING TOMORROW MORNING PER DR. IBARRA. IV ACCESS ON RIGHT FA IS INTACT WITH A RUNNING D5 1/2 NS@75 ML/HR. SAFETY PRECAUTIONS IN PLACED. BED LOCKED ON LOWEST POSITION, HOB ELEVATED, SIDE RAILS UPX3, WILL ENDORSE TO THE NEXT SHIFT FOR CONTINUITY OF CARE.
[2021-01-24 20:00] VITALS: BP 122/76
[2021-01-24] MEDS ORDERED: DIATR MEGLU/DIATRIZOATE SODIUM 120 ML BOTTLE (GASTROGRAPHIN) ONE (20:47)
--- NOTE | 2021-01-24 20:53 | NUR ---
NOTIFIED TANIA PATEL REGARDING G-TUBE PLACEMENT. ORDERS FOR CHEST X-RAY TO VERIFY G-TUBE PLACEMENT CARRIED OUT. CHARGE NURSE TWAN GONZALEZ. Addendum: 01/24/21 at 2110 by NICKI PARK RN X-RAY OF ABDOMEN. CHARGE NURSE TRENT AWARE.
[2021-01-24] MEDS: MIRTAZAPINE 15 MG TABLET PO SCH (22:00)
--- NOTE | 2021-01-24 22:06 | NUR ---
RN NOTE REMERON NOT ADMINISTERED DUE TO PENDING ABDOMINAL X-RAY
[2021-01-25 04:00] VITALS: BP 106/71
[2021-01-25] MEDS: IV D5/0.45 NACL 1,000 ML IV PRN (05:54)
--- NOTE | 2021-01-25 08:05 | NUR ---
RN ClOSING NOTE PATIENT WAS LAST SEEN AWAKE IN BED. PT IS A/O X1-2. PT IS ON ROOM AIR WITH NO RESP. DISTRESS NOTED. PT HAS A 22G RIGHT FOREARM IV LINE INFUSING D5 1/2 NS RUNNING AT 75ML/HR. IV LINE FLUSHED, PATENT WITH NO SIGNS OF INFILTRATION. SAFETY MEASURES IN PLACE: SIDE RAILS UP X3, BED LOCKED, BED ALARM ON, AND CALL LIGHT WITHIN REACH. ENDORSED CARE TO THE DAY SHIFT NURSE.
--- NOTE | 2021-01-25 09:30 | NUR ---
SS consult requested over the weekend. Pt. has departed. Addendum: 01/25/21 at 0930 by VELASQUEZ KUMAR SS consult requested over the weekend. SS will follow up at a later time.
[2021-01-25] MEDS: ENOXAPARIN SODIUM 40 MG/0.4 ML DISP.SYRIN SQ SCH (09:35)
[2021-01-25] MEDS: PANTOPRAZOLE 40 MG TABLET.DR PO SCH (09:36)
[2021-01-25] MEDS: MEGESTROL ACETATE 40 MG TABLET PO SCH (09:36)
[2021-01-25] MEDS: ASPIRIN 81 MG TAB.CHEW PO SCH (09:36)
[2021-01-25] MEDS: METOPROLOL SUCCINATE 25 MG TAB.SR.24H PO SCH (09:37)
[2021-01-25] MEDS: ENSURE ENLIVE 237 ML LIQUID (VANILLA) PO SCH ×2 (09:49→13:00)
[2021-01-25] MEDS ORDERED: JEVITY 1.2 CAL 1,000 ML BOTTLE GT PRN (10:30)
[2021-01-25 12:00] VITALS: BP 110/76
--- NOTE | 2021-01-25 14:31 | NUR ---
RN NOTES RECEIVED PATIENT AWAKE IN BED WITH A & O X 2, ON ROOM AIR WITH NO RESP DISTRESS NOTED PT HAS A 22G RIGHT FOREARM IV LINE INFUSING D5 1/2 NS RUNNING AT 75ML/HR, IV LINE FLUSHED, PATENT WITH NO SIGNS OF INFILTRATION, SAFETY MEASURES IN PLACE: SIDE RAILS UP X3, BED LOCKED, BED ALARM ON, AND CALL LIGHT WITHIN REACH, G-TUBE INTACT RUNNING AT 20CC/HR TOLERATING WELL, HOB RAISED 45 % ANGLE, REPOSITIONED FOR COMFORT, SAFETY MEASURES IN PLACE BED LOW TO FLOOR, BRAKES ON, WILL CONTINUE TO MONITOR FOR RESIDUAL AND ANY DISTRESS. .
--- NOTE | 2021-01-25 15:48 | NUR ---
SS Consult: SS Consult requested for elderly pt. Hx. of recent admission to [facility]. The pt. is a 76-year-old Male. Per EMR, pt. has Hx. of dementia, hypertension, hyperlipidemia, came to the hospital with poor p.o. intake, weight loss, was dehydrated for possible g-tube placement. SW attempted to meet with pt. bedside. However, pt. is currently being picke dup by EMT for transportation/discharg back to facility, [facility] [phone]. SW [facility] and spoke to Yolanda CORNELIUS to gather collateral information. Per Yolanda, there was a psych consult for Dr. Junior to see this pt. but she is unsure if pt. was ever seen by psychiatrist. This SW recommended psych consult request be order again. Yolanda is agreeable. Per Yolanda pt. is currently on Remeron, Zyprexa Ambient. STACY explored if pt. is currently on medication for Dementia and Yolanda confirmed pt. is. Per EMR, the pt.s responsible green party is his brother, Puma Blanco [phone]. SW will be available as needed.
--- NOTE | 2021-01-25 16:00 | NUR ---
RN NOTES PATIENT D/C, SAFE TRANSFER FROM [facility] TO [facility] WITH 2 METAL POLISHER TO SNF, HAD BM 2 TIMES RUNNY BROWN NORMAL ODOR, F/C INTACT 200 CC, D/C OF IV SITE, G-TUBE INTACT PATENT EASY FLUSH, NO C/O PAIN, NO DISTRESS NOTED, NO WOUNDS ON SKIN - SKIN INTACT, RR 20, TEMP 98.7, B/P 112/68, PULSE 86, OXYGEN 96% ROOM AIR, ALL EDUCATIONAL MATERIAL PRINTED AND GIVEN IN FOLDER TO METAL POLISHER TO TAKE TO SNF AND EDUCATED PATIENT ON OVERCOMING A FAILURE TO THRIVE BUT THE WILL TO LIVE AND LIVE THE END OF LIVES ABUNDANTLY WITH HOPE AND GLORY AND PRAYER A LITTLE RECEPTIVE TO THIS SAID HE WAS EMBARRASSED AND ASHAMED OF HIMSELF AND THAT HE WOULD TRY. SAFE TRANSFER FROM HOSPITAL TO EMT AMBULANCE , ALL MD ORDERS AND DOCUMENTS SENT WITH METAL POLISHER AND BELONGING LIST WHICH HE HAD NO BELONGINGS.
== END 2021-01-25 15:30 | DRG 155 ==
LOC: ER 20:54 → MEDSG1 22:15
PROVIDERS: ADMIT Nurse Practitioner Acute Care; ATTEND Internal Medicine
PROC: 0DH63UZ Insertion of Feeding Device into Stomach, Percutaneous Approach (ICD-10-PCS; principal; 2021-01-24)
DX: J39.2 Other diseases of pharynx (principal); E44.0 Moderate protein-calorie malnutrition; Z68.1 Body mass index [BMI] 19.9 or less, adult; R62.7 Adult failure to thrive; E78.5 Hyperlipidemia, unspecified; G31.83 Neurocognitive disorder with Lewy bodies; F02.80 Dementia in other diseases classified elsewhere, unspecified severity, without behavioral disturbance, psychotic disturbance, mood disturbance, and anxiety; Z20.822 Contact with and (suspected) exposure to COVID-19; K29.70 Gastritis, unspecified, without bleeding; K21.9 Gastro-esophageal reflux disease without esophagitis; R13.10 Dysphagia, unspecified; F32.9 Major depressive disorder, single episode, unspecified; E86.0 Dehydration; I10 Essential (primary) hypertension; E83.52 Hypercalcemia; Z74.09 Other reduced mobility; F39 Unspecified mood [affective] disorder; F29 Unspecified psychosis not due to a substance or known physiological condition
CPT/HCPCS: 36415; 43761; 71045-TC; 74018; 80048-TC; 80076-TC; 81001; 83690-TC; 83735-TC; 84100-TC; 84134-TC; 84484-TC; 85025-TC; 85730-TC; 87081-TC; 87086-TC; 92526; 92611-TC; 97116-TC; 97530-TC; C9803; G0378; J0690; J1650; J2704; J3475; J3490; J7030; Q9963; U0003

== ENCOUNTER 2021-02-11 22:32 | Inpatient (IN) | payer MEDICARE ==
[~2021-02-11] VITALS: Ht 172.7 cm; Wt 55.4 kg
[~2021-02-11 22:32] MED LIST changes: -LACT-246 PO; -MEGE40TA5 PO; -MIRT7.5T10 PO
--- NOTE | 2021-02-11 22:35 | NUR ---
KADIE ATKINSON FROM [facility] FOR BLOOD IN GT, REPORTED REDISH/BLACKISH PER FACILITY. PT AAOX 1-2, COOPERATIVE, NO S/S OF ACUTE DISTRESS, BREATHING EVEN AND UNLABORED, SATURATION AT 95% ON 2L VIA NC, GT INTACT, DRESSING DRY NO SIGN OF BLEEDING NOTED. SEEN AND EXAMINED BY DR KIM. PT CONNECTED TO MONITOR AND PULSE OX. WILL CONTINUE TO MONITOR AND CARRY OUT MD ORDERS.
[2021-02-11] MEDS ORDERED: IV NS 0.9% 1,000 ML BAG IV ONE (23:00)
[2021-02-11 23:24] LABS: BASOPHILS # (AUTO) 0.1 K/uL (0.0-0.2); BASOPHILS % (AUTO) 0.6 % (0.0-2.0); CALCIUM, SERUM 11.7 mg/dL (8.5-10.1); CREATININE 0.7 mg/dL (0.6-1.3); HEMATOCRIT 33 % (39-51); LYMPHOCYTES # (AUTO) 0.7 K/uL (0.8-4.8); LYMPHOCYTES % (AUTO) 3.4 % (20.0-44.0); MEAN CORPUSCULAR HGB CONC 33 g/dl (31.0-36.0); MEAN CORPUSCULAR VOLUME 97 fL (80-96); MONOCYTES % (AUTO) 4.5 % (2.0-12.0); NEUTROPHILS # (AUTO) 19.4 K/uL (1.8-8.9); NEUTROPHILS % (AUTO) 91.5 % (43.0-81.0); PLATELET COUNT (AUTO) 403 K/uL (150-450); POTASSIUM 4.5 mmol/L (3.5-5.1); RED BLOOD CELL COUNT(AUTO) 3.39 MIL/uL (4.5-6.0); WHITE BLOOD COUNT (AUTO) 21.2 K/uL (4.3-11.0)
[2021-02-11 23:33] LABS: ALBUMIN 2.8 g/dL (3.4-5.0); BILIRUBIN,DIRECT 0.1 mg/dL (0.0-0.2); BILIRUBIN,TOTAL 0.4 mg/dL (0.2-1.0); TOTAL PROTEIN, SERUM 6.9 g/dL (6.4-8.2)
[2021-02-12] MEDS ORDERED: LIDOCAINE 2% JEL UROJET 10 ML MM ONE (00:17)
[2021-02-12] MEDS ORDERED: Z GUARD REMEDY 2 OZ OINT TP PRN ×2 (00:30)
[2021-02-12] MEDS ORDERED: ACETAMINOPHEN 325 MG TABLET PO PRN ×2 (00:30)
[2021-02-12] MEDS ORDERED: CEFTRIAXONE 1 G in IV D5W 50 ML IV SCH (00:30)
[2021-02-12] MEDS ORDERED: MAG HYDROX/AL HYDROX/SIMETH 30 ML UDC PO PRN (00:30)
[2021-02-12] MEDS ORDERED: MAGNESIUM HYDROXIDE 30 ML UDC PO PRN ×2 (00:30)
[2021-02-12] MEDS ORDERED: ONDANSETRON HCL/PF 4 MG/2 ML VIAL IVP PRN (00:30)
[2021-02-12 00:54] LABS: BILIRUBIN,URINE Negative (NEGATIVE); COLOR,URINE YELLOW (YELLOW); LEUKOCYTE ESTERASE ,URINE Negative (NEGATIVE); NITRITE, URINE Negative (NEGATIVE); PH,URINE 5.5 (5.0-8.0); PROTEIN,URINE Negative (NEGATIVE); UGLUCOSE Negative (NEGATIVE); UROBILINOGEN,URINE 0.2 EU/dL (0.2)
[2021-02-12] MEDS ORDERED: LORAZEPAM 0.5 MG TABLET PO PRN (01:00)
[2021-02-12 01:03] LABS: BACTERIA,URINE None seen /HPF (None Seen); SQUAMOUS EPITHELIAL CELL,UR Rare /HPF (None Seen); WBC,URINE 0-2 /HPF (0-3)
--- NOTE | 2021-02-12 02:00 | NUR ---
MS RN: RECEIVED PT. FROM ED ALERT AND AWAKE WT CONFUSION. ABLE TO TALK AND FOLLOW SIMPLE COMMANDS. NOTED WT CONGESTION/CRACKLES AND NEEDED SUCTIONING. NOTED WT THIN WHITE SECRETIONS. ON 2L 02 VIA NC. NO C/O PAIN. BODY ASSESSMENT DONE WT COCCYX WOUND, SCROTAL REDNESS AND ALMA ROSA-ANAL MASD. PICTURES TAKEN WT PENDING WOUND CONSULT. GOOD SKIN CARE RENDERED. NO ACTIVE BLEEDING AT THIS TIME. HOB AT 35 DEGREES. BED IN LOWEST POSITION AND LOCKED. BED ALARM ON. CALL LIGHT KEPT WITHIN REACH. WILL CONTINUE TO MONITOR.
[2021-02-12] MEDS ORDERED: CEFTRIAXONE 1 G VIAL ONE ×2 (02:03→02:23)
[2021-02-12] MEDS: PANTOPRAZOLE 40 MG VIAL IV SCH ×3 (02:07→16:27)
[2021-02-12] MEDS: IV NS 0.9% 1,000 ML IV PRN ×2 (02:12→21:12)
[2021-02-12 02:44] VITALS: BP 103/74
[2021-02-12] MEDS: LORAZEPAM INJ 2 MG/ML VIAL IV PRN ×2 (03:55→21:13)
[2021-02-12] MEDS ORDERED: IPRATROPIUM NEB FS 0.5 MG/2.5 ML AMPUL.NEB NEB PRN (04:00)
[2021-02-12] MEDS ORDERED: ALBUTEROL FS 2.5 MG/0.5 ML VIAL.NEB NEB PRN (04:00)
[2021-02-12] MEDS ORDERED: ACETYLCYSTEINE 20% SOLN 800 MG/4 ML VIAL NEB PRN (04:00)
--- NOTE | 2021-02-12 04:00 | NUR ---
MS RN: ATIVAN GIVEN FOR FOR RESTLESSNESS M/B EPISODES OF TRYING TO GET OUT OF BED. PT REFUSED TO GET SUCTIONED BY RT. DIANNA NEGRO MADE AWARE.
--- NOTE | 2021-02-12 05:50 | NUR ---
MS RN: REASSESSED AFTER GIVEN ATIVAN WT GOOD EFFECT. CALM AT THIS TIME. EYES CLOSED, ABLE TO OPEN EYES. NO ACUTE DISTRESS. NO EVIDENCE OF DISCOMFORT. HOB AT 35 DEGREES. BED IN LOWEST POSITION AND LOCKED, BED ALARM ON, SIDE RAILS UPX2. CALL LIGHT KEPT WITHIN REACH.
--- NOTE | 2021-02-12 07:40 | NUR ---
RN Note: Pt received alert awake oriented X 2. On 2 LPM O2 via NC, Noted congested & crackles. Deep suctioning done by RT, Pt feels relieved. Safety measures observed. Continue with IV fluids as ordered. Continue to monitor.
[2021-02-12 08:00] VITALS: BP 99/59
[2021-02-12 12:00] VITALS: BP 109/62
[2021-02-12 16:00] VITALS: BP 122/63
[2021-02-12 20:00] VITALS: BP 93/53
[2021-02-12] MEDS: CEFTRIAXONE 1 G in IV D5W 50 ML IV SCH (21:12)
[2021-02-13 04:00] VITALS: BP 105/65
--- NOTE | 2021-02-13 05:34 | NUR ---
RN notes Alert with confusion, responsive only to name. No distress noted. Breathing even and unlabored. Room air well tolerated. No physical manifestation of pain or discomfort. Noted patient to have an elevated temperature at 04:00 of 100.6. Cooling measures provided. Tylenol 650mg given with relief. On soft mittens to prevent pulling out tubings, removed every two hours for hygiene, circulation and repositioning. Kept clean and dry. Will endorse to next shift for continuity of care.
--- NOTE | 2021-02-13 05:58 | NUR ---
RN notes Alert, confused non-verbal. In bed, resting comfortably with no distress noted. On 2lpm O2 via nasal cannula tolerating well. No physical manifestation of pain or discomfort. Vital signs wnl. No significant change of condition. Will endorse to next shift for continuity of care.
[2021-02-13 08:00] VITALS: BP 108/56
[2021-02-13 08:15] LABS: BASOPHILS # (AUTO) 0.1 K/uL (0.0-0.2); BASOPHILS % (AUTO) 1.1 % (0.0-2.0); EOSINOPHILS % (AUTO) 5.2 % (0.0-6.0); HEMATOCRIT 27 % (39-51); HEMOGLOBIN 9.2 g/dL (13.5-17.5); LYMPHOCYTES # (AUTO) 0.7 K/uL (0.8-4.8); LYMPHOCYTES % (AUTO) 5.8 % (20.0-44.0); MEAN CORPUSCULAR HGB CONC 34 g/dl (31.0-36.0); MEAN CORPUSCULAR VOLUME 98 fL (80-96); MONOCYTES # (AUTO) 0.8 K/uL (0.1-1.30); MONOCYTES % (AUTO) 6.4 % (2.0-12.0); NEUTROPHILS # (AUTO) 9.6 K/uL (1.8-8.9); NEUTROPHILS % (AUTO) 81.5 % (43.0-81.0); PLATELET COUNT (AUTO) 341 K/uL (150-450); RED BLOOD CELL COUNT(AUTO) 2.75 MIL/uL (4.5-6.0); WHITE BLOOD COUNT (AUTO) 11.8 K/uL (4.3-11.0)
[2021-02-13 08:38] LABS: THYROID STIMULATING HORMONE 1.856 uIU/mL (0.358-3.74)
[2021-02-13] MEDS: PANTOPRAZOLE 40 MG VIAL IV SCH ×2 (09:22→17:29)
[2021-02-13 09:26] LABS: CALCIUM, SERUM 11.3 mg/dL (8.5-10.1); CREATININE 0.6 mg/dL (0.6-1.3); MAGNESIUM 2.1 mg/dL (1.8-2.4); PHOSPHORUS 2.9 mg/dL (2.5-4.9); POTASSIUM 3.7 mmol/L (3.5-5.1)
[2021-02-13 16:00] VITALS: BP 114/68
[2021-02-13] MEDS: IV NS 0.9% 1,000 ML IV PRN (16:57)
--- NOTE | 2021-02-13 19:00 | NUR ---
RN NOTE RECEIVED PATIENT IN BED RESTING ALERT ORIENTATED X1 VERBALLY RESPONSIVE ON 3L OXYGEN VIA NASAL CANNULA,O2:91% HR:102 CHEST CONGESTED,LUNG SOUND CRACKLES,NPO,IV SITE IS ON RIGHT FOREARM FOREARM INTACT PATENT ON IV HYDRATION NS 0.9% 75CC/HR,INCONTINENT TO BOWEL/BLADDER, SAFETY MEASURE IMPLEMENT,BED IN LOW POSITION AND LOCKED,BED ALARM IS ON CONTINUE TO MONITOR.
[2021-02-13 20:00] VITALS: BP 106/59
[2021-02-13] MEDS: CEFTRIAXONE 1 G in IV D5W 50 ML IV SCH (22:26)
--- NOTE | 2021-02-13 23:00 | NUR ---
RN NOTE PATIENT DESATURATING O2 TO 83,TRIED TO SUCTION EXPLAINED TO PATIENT HE REFUSED TO BE SUCTIONED INCREASED OXYGEN FROM 3L TO 6L NOTIFIED PUBLICATIONS INSPECTOR SRUTHI TANG PUBLICATIONS INSPECTOR CONTINUE TO MONITOR.
--- NOTE | 2021-02-14 01:30 | NUR ---
RN NOTE PATIENT DESATURATING TO 84% AND HR IS BETWEEN 120-140 NOTIFIED CASING CREW PUSHER SRUTHI,SHE ORDERED NS 500CC BOLUS AND STEROID PUSH IV SCHEDULED AND ATIVAN IV PRN ,NOTED AND CARRIED OUT CONTINUE TO MONITOR.
[2021-02-14] MEDS: ALBUTEROL FS 2.5 MG/0.5 ML VIAL.NEB NEB SCH ×5 (02:00→19:53)
[2021-02-14] MEDS: IPRATROPIUM NEB FS 0.5 MG/2.5 ML AMPUL.NEB NEB SCH ×5 (02:00→19:53)
[2021-02-14] MEDS ORDERED: IV NS 0.9% 500 ML IV ONE (02:00)
[2021-02-14] MEDS: methylPREDNISolone SOD SUCC 40 MG/ML VIAL IV SCH ×3 (02:09→16:31)
[2021-02-14] MEDS: LORAZEPAM INJ 2 MG/ML VIAL IV PRN (03:06)
[2021-02-14 04:00] VITALS: BP 100/56
--- NOTE | 2021-02-14 06:46 | NUR ---
RN NOTE PATIENT REMAINS ON ALERT ORIENTED X1 VERBALLY RESPONSIVE ON 6L OXYGEN O2:92% NPO ON IV HYDRATION NS 0.9% 75CC/HR KEPT CLEAN AND DRY ALL THE TIME,BED ALARM IS ON,KEPT COMFORTABLE,ALL NEEDS MET ENDORSE NEXT COMING SHIFT FOR CONTINUATION OF CARE.
[2021-02-14 07:15] LABS: BASOPHILS % (AUTO) 0.2 % (0.0-2.0); HEMATOCRIT 26 % (39-51); HEMOGLOBIN 8.9 g/dL (13.5-17.5); LYMPHOCYTES # (AUTO) 0.3 K/uL (0.8-4.8); LYMPHOCYTES % (AUTO) 2.1 % (20.0-44.0); MEAN CORPUSCULAR HGB CONC 34 g/dl (31.0-36.0); MEAN CORPUSCULAR VOLUME 97 fL (80-96); MONOCYTES # (AUTO) 0.2 K/uL (0.1-1.30); NEUTROPHILS # (AUTO) 14.8 K/uL (1.8-8.9); NEUTROPHILS % (AUTO) 96.7 % (43.0-81.0); PLATELET COUNT (AUTO) 351 K/uL (150-450); RED BLOOD CELL COUNT(AUTO) 2.69 MIL/uL (4.5-6.0); WHITE BLOOD COUNT (AUTO) 15.3 K/uL (4.3-11.0)
--- NOTE | 2021-02-14 07:35 | NUR ---
RN NOTE PATIENT IS CURRENTLY IN BED WITH HOB AT SEMI FOWLERS POSITION. PATIENT IS ON 6L NC. PATIENT IS AOX1. RFA #20 IS PATENT AND INTACT. BED IS LOCKED IN THE LOWEST POSITION, 3 GUARD RAILS RAISED, CALL BLOOD WITHIN REACH, AND ALL HOSPITAL SAFETY PRECAUTIONS ARE BEING FOLLOWED. WILL CONTINUE TO MONITOR THROUGHOUT SHIFT.
[2021-02-14 07:45] LABS: CALCIUM, SERUM 11.3 mg/dL (8.5-10.1); CREATININE 0.6 mg/dL (0.6-1.3); PHOSPHORUS 2.4 mg/dL (2.5-4.9); POTASSIUM 3.4 mmol/L (3.5-5.1)
[2021-02-14] MEDS: PANTOPRAZOLE 40 MG VIAL IV SCH ×2 (08:03→16:31)
[2021-02-14] MEDS: IV NS 0.9% 1,000 ML IV PRN ×2 (08:08→23:10)
--- NOTE | 2021-02-14 08:17 | NUR ---
WOUND CARE CONSULT: PT PRESENTS WITH INTACT DEEP TISSUE INJURY TO SACROCOCCYX AREA, PRESENT ON ADMISSION. PT IS INCONTINENT. RECOMMENDATIONS MADE FOR SKIN PROTECTION. DISCUSSED WITH NURSING STAFF. PT IS ON [id number] ISOFLEX LOW AIRLOSS BED. IN AGREEMENT WITH PLAN OF CARE. Addendum: 02/14/21 at 0818 by EWELINA LACEY WNDNU Amended: Links added.
[2021-02-14] MEDS ORDERED: POTASSIUM CHLORIDE 20 MEQ TAB.PRT.SR PO SCH (09:30)
[2021-02-14] MEDS ORDERED: K PHOS NEUTRAL 250 MG TABLET PO ONE (09:30)
--- NOTE | 2021-02-14 10:00 | NUR ---
RN NOTE NOTIFIED RT OF PATIENT DESATURATING TO LOW 80S ON 6L NC. SIMPLE MASK APPLIED AT 10L AND SATURATING MID 90S. WILL CONTINUE TO MONITOR.
[2021-02-14 12:00] VITALS: BP 119/70
[2021-02-14 14:54] LABS: ABG BASE EXCESS -2.5 mmol/L; ABG OXYGEN SATURATION 95.2 % (92.0-98.5); ABG PCO2 34.4 mmHg (35.0-45.0); ABG PH 7.415 (7.350-7.450); ABG PO2 81.4 mmHg (75.0-100.0); AaDO2 308.6 mmHg; COHb 0.3 % (0.5-1.5); MetHb 0.6 % (0.0-1.5); O2Hb 94.3 % (94.0-97.0); SITE, ABG Left Brachial; VENT MODE, BG SIMPLE MASK
--- NOTE | 2021-02-14 19:30 | NUR ---
RN NOTE RECEIVED PATIENT IN BED. A/OX A/OX1. ON OXYGEN 10L/MIN VIA SIMPLE MASK. PATIENT IS TAKING OFF MASK. INFORMED HIM TO KEEP MASK ON. PATIENT HAS GARBLED SPEECH. NO C/O PAIN. IN NO APPARENT DISTRESS. BILATERAL SOFT WRIST RESTRAINTS PRESENT, NO REDNESS. PATIENT IS TRYING TO REMOVE MASK. INFORMED PATIENT HE IS NPO DDT ASKING FOR WATER. IV ACCESS IN RFA#20 RUNNING NS@75ML/HR. BED IS LOW AND LOCKED, HOB ELEVATED IN SEMI FOWLERS, SIDE RAILS UP X2, CALL LIGHT WITHIN REACH. WILL CONTINUE TO MONITOR THROUGHOUT SHIFT.
[2021-02-14 20:00] VITALS: BP 122/70
[2021-02-14] MEDS: MUPIROCIN OINT 2% 22 GM TUBE NS SCH (21:20)
[2021-02-14] MEDS: CEFTRIAXONE 1 G in IV D5W 50 ML IV SCH (22:02)
--- NOTE | 2021-02-14 23:12 | NUR ---
RN NOTE STOPPED IV FLUIDS D/T PATIENT SOUNDING CONGESTED.
[2021-02-15 00:42] VITALS: BP 129/65
--- NOTE | 2021-02-15 00:47 | NUR ---
RN NOTE - TRANSFER 310-1 PATIENT TRANSFERRED TO 310-1. BEDSIDE REPORT GIVEN TO KEKE CORNELIUS. PATIENT REMAINS STABLE ON OXYGEN 8L/MIN VIA SIMPLE MASK. NO IVF RUNNING. GTUBE STILL CLAMPED. CHART AND BELONGINGS TAKEN WITH PATIENT. Addendum: 02/15/21 at 0049 by TARIK COE RN REMAINS WITH BILATERAL SOFT WRIST RESTRAINTS
--- NOTE | 2021-02-15 01:03 | NUR ---
Patient transferred to unit at 0042 received report from Corina CORNELIUS. Patient is A&Ox1. Oriented to unit and staff. Initial vital signs: B/P 129/65, HR 102, O2 sat 99% on 8L via mask,Temp 97.2, RR 18. Patient sounds congested, with intermittent cough. No need to be suctioned at this time, but suction machine with Yankauer set up. Soft restraints to didi. wrists loosened and allowed patient ROM - adequate perfusion to hands, skin intact underneath. Patient continues to pull off mask if not restrained, even tries to take it off while still restrained. Frequent checks on patient. Bed in lowest position, bed alarm on, call light within reach.
[2021-02-15] MEDS: LORAZEPAM INJ 2 MG/ML VIAL IV PRN (01:37)
--- NOTE | 2021-02-15 01:57 | NUR ---
Patient given as per PRN order for anxiety s aeb repeatedly taking off mask despite being redirected and q15min checks, and restlessness.
--- NOTE | 2021-02-15 05:24 | NUR ---
Patient voice is hoarse and coarse crackles can be heard, is beginning to look short of breath. RT called and were able to deep suction the patient with thick white mucous output -patient looks relieved afterward. PRN Breathing treatment as well O2 sats staying above 93% on 8L via simple face mask.
--- NOTE | 2021-02-15 06:14 | NUR ---
Patient's restraints released allowing for ROM, skin intact and circulation is good. Patient grateful. O2 sats kept above 93% on 8L O2 via simple face mask. Patient continues to be confused and pulling at lines/mask -continued need for bilateral soft wrist restraints.
[2021-02-15 07:03] LABS: BASOPHILS % (AUTO) 0.1 % (0.0-2.0); HEMATOCRIT 27 % (39-51); HEMOGLOBIN 9.4 g/dL (13.5-17.5); LYMPHOCYTES # (AUTO) 0.8 K/uL (0.8-4.8); LYMPHOCYTES % (AUTO) 4.8 % (20.0-44.0); MEAN CORPUSCULAR HGB CONC 35 g/dl (31.0-36.0); MEAN CORPUSCULAR VOLUME 97 fL (80-96); MONOCYTES # (AUTO) 0.8 K/uL (0.1-1.30); MONOCYTES % (AUTO) 4.7 % (2.0-12.0); NEUTROPHILS # (AUTO) 14.9 K/uL (1.8-8.9); NEUTROPHILS % (AUTO) 90.4 % (43.0-81.0); PLATELET COUNT (AUTO) 420 K/uL (150-450); RED BLOOD CELL COUNT(AUTO) 2.79 MIL/uL (4.5-6.0); WHITE BLOOD COUNT (AUTO) 16.5 K/uL (4.3-11.0)
[2021-02-15 07:55] LABS: ALBUMIN 2.6 g/dL (3.4-5.0); BILIRUBIN,TOTAL 0.3 mg/dL (0.2-1.0); CALCIUM, SERUM 12.3 mg/dL (8.5-10.1); CREATININE 0.9 mg/dL (0.6-1.3); MAGNESIUM 1.9 mg/dL (1.8-2.4); PHOSPHORUS 2.4 mg/dL (2.5-4.9); POTASSIUM 3.2 mmol/L (3.5-5.1); TOTAL PROTEIN, SERUM 6.3 g/dL (6.4-8.2)
[2021-02-15 08:00] VITALS: BP 130/69
[2021-02-15] MEDS: IPRATROPIUM NEB FS 0.5 MG/2.5 ML AMPUL.NEB NEB SCH ×4 (08:24→20:18)
[2021-02-15] MEDS: ALBUTEROL FS 2.5 MG/0.5 ML VIAL.NEB NEB SCH ×4 (08:24→20:18)
[2021-02-15] MEDS ORDERED: POTASSIUM CHLORIDE 20 MEQ POWDER PACKET GT ONE (08:30)
[2021-02-15] MEDS: PANTOPRAZOLE 40 MG VIAL IV SCH ×2 (09:47→17:18)
[2021-02-15] MEDS: methylPREDNISolone SOD SUCC 40 MG/ML VIAL IV SCH ×2 (09:47→17:18)
[2021-02-15] MEDS: MUPIROCIN OINT 2% 22 GM TUBE NS SCH ×2 (09:53→21:41)
--- NOTE | 2021-02-15 10:18 | NUR ---
RN NOTES BEDSIDE ENDORSEMENT AND PATIENT REPORT GIVEN TO ADRYAN FONTANEZ.
--- NOTE | 2021-02-15 10:20 | NUR ---
reprt from [facility] rt upper arm midline inserted this am.
--- NOTE | 2021-02-15 11:00 | NUR ---
PT. ON 02,HOB ELEVATED.RESTRAINTS IN PLACE,STILL ATTEMPTING TO GET OUT OF BED.IV INFUSING,BED ALRM ON.
[2021-02-15 15:41] VITALS: BP 139/89
[2021-02-15] MEDS: POTASSIUM PHOSPHATE MM 7.5 MMOL in IV NS 0.9% 100 ML IV SCH ×2 (16:37→21:18)
--- NOTE | 2021-02-15 17:45 | NUR ---
Vashti COOPER CALLED WITH INFO,NO ORDERS GIVEN.REAL ESTATE MARKETING COORDINATOR AWARE.POTASSIUM PHOSPHATE INFUSING PHOS.AND POTASSIUM ARE LOW.ADDITIONALLY POTASSIUM POWDER GIVEN EARLIER WITH OTHER NURSE.
--- NOTE | 2021-02-15 18:30 | NUR ---
NO NEW ORDERS ON TUBE FEEDING.
--- NOTE | 2021-02-15 19:00 | NUR ---
MS RN OPENING NOTE RECEIVE PT IN BED AT THIS TIME, A/OX 1-2. PT UNABLE TO MAKE NEEDS KNOWN, VOICE IS NOT CLEAR DUE TO SECRETIONS, NO C/O PAIN AT THIS TIME, NO S/S OF ANY APPARENT DISTRESS NOTED. RESPIRATIONS EVEN AND LABORED, SACRAL DTI TO WOUND SACRAL, WARM TO TOUCH. CAPILLARY REFILL <3 SECONDS, PULSES PRESENT BILATERALLY. NO IV ACCESS IN PLACE BEKA MIDLINE NOTED, INTACT, PATENT AND FLUSHING. PT ON PEG TUBE. ASPIRATION AND SAFETY PRECAUTIONS IN PLACE AND MAINTAINED AT ALL TIMES. BED IN LOWEST LOCKED POSITION, SIDE RAILS UP X2, TABLE AND CALL LIGHT WITHIN REACH. WILL CONTINUE PLAN OF CARE.
--- NOTE | 2021-02-15 19:30 | NUR ---
RT MADE AWARE OF THE SITUATION. SUCTIONED, REPOSITIONED AND ENCOURAGED TO DEEP BREATH. PT WAS RELAXED AND COMFORTABLE AFTERWARDS
[2021-02-15 20:22] VITALS: BP 135/81
[2021-02-15] MEDS: CEFTRIAXONE 1 G in IV D5W 50 ML IV SCH (23:58)
--- NOTE | 2021-02-16 06:00 | NUR ---
MS RN CLOSING NOTE PT IS IN BED AWAKE. PT IS STABLE OXYGEN VIA NC, NO SOB NOTED. NO S/S OF RESPIRATORY DISTRESS. PT IS BED REST. IV ACCESS NOTED IN BEKA MIDLINE INTACT, PATENT, AND FLUSHING WELL. ALL NEEDS HAVE BEEN MET. ALL CARE, NEEDS, MEDICATIONS, AND TREATMENT ADMINISTERED ANTICIPATED PER ORDER. SAFETY, SEIZURE, AND ASPIRATION PRECAUTIONS MAINTAINED AT ALL TIMES. BED IN LOWEST LOCKED POSITION, HOB ELEVATED, SIDE RAILS UPX2. CALL LIGHT AND TABLE WITHIN REACH. WILL ENDORSE TO ONCOMING NURSE FOR
[2021-02-16 06:44] LABS: BASOPHILS % (AUTO) 0.2 % (0.0-2.0); HEMATOCRIT 26 % (39-51); HEMOGLOBIN 8.8 g/dL (13.5-17.5); LYMPHOCYTES # (AUTO) 0.7 K/uL (0.8-4.8); LYMPHOCYTES % (AUTO) 4.6 % (20.0-44.0); MEAN CORPUSCULAR HGB CONC 34 g/dl (31.0-36.0); MEAN CORPUSCULAR VOLUME 98 fL (80-96); MONOCYTES # (AUTO) 0.8 K/uL (0.1-1.30); MONOCYTES % (AUTO) 5.4 % (2.0-12.0); NEUTROPHILS # (AUTO) 12.6 K/uL (1.8-8.9); NEUTROPHILS % (AUTO) 89.8 % (43.0-81.0); PLATELET COUNT (AUTO) 361 K/uL (150-450); RED BLOOD CELL COUNT(AUTO) 2.65 MIL/uL (4.5-6.0); WHITE BLOOD COUNT (AUTO) 14.1 K/uL (4.3-11.0)
[2021-02-16] MEDS: ALBUTEROL FS 2.5 MG/0.5 ML VIAL.NEB NEB SCH ×4 (07:36→19:57)
[2021-02-16] MEDS: IPRATROPIUM NEB FS 0.5 MG/2.5 ML AMPUL.NEB NEB SCH ×4 (07:36→19:57)
--- NOTE | 2021-02-16 07:45 | NUR ---
MS RN OPENING NOTES PT IS IN SEMI-FOWLERS, RESTING COMFORTABLY. AROUSABLE BY PHYSICAL TOUCH. TOLERATING OXYGEN WELL VIA NC @ 2L, NO SOB NOTED. NO S/S OF RESPIRATORY DISTRESS. IV ACCESS IN BEKA MIDLINE INTACT, PATENT, AND FLUSHING WELL. BED IN LOWEST LOCKED POSITION, HOB ELEVATED, SIDE RAILS UPX2. CALL LIGHT AND TABLE WITHIN REACH. WILL CONTINUE TO MONITOR.
[2021-02-16 07:52] LABS: CALCIUM, SERUM 12.4 mg/dL (8.5-10.1); CREATININE 0.7 mg/dL (0.6-1.3); POTASSIUM 3.3 mmol/L (3.5-5.1)
[2021-02-16 08:00] VITALS: BP 110/70
[2021-02-16] MEDS: PANTOPRAZOLE 40 MG VIAL IV SCH ×2 (09:42→17:04)
[2021-02-16] MEDS: methylPREDNISolone SOD SUCC 40 MG/ML VIAL IV SCH ×2 (09:42→17:03)
--- NOTE | 2021-02-16 09:50 | NUR ---
RN NOTES RT SEEN AT BEDSIDE PROVIDING TREATMENT. NO RESPIRATORY DISTRESS NOTED.
[2021-02-16] MEDS ORDERED: POTASSIUM CHLORIDE 20 MEQ POWDER PACKET PO ONE (10:00)
[2021-02-16] MEDS: MUPIROCIN OINT 2% 22 GM TUBE NS SCH ×2 (10:01→20:38)
[2021-02-16 16:00] VITALS: BP 121/67
--- NOTE | 2021-02-16 17:30 | NUR ---
RN NOTES GT FEEDING OF JEVITY 1.2 STARTED TODAY AT 30ML/HR. GT FLUSHED FOR PATENCY AND FOR HYDRARATION. NO RESIDUAL NOTED.
[2021-02-16] MEDS: JEVITY 1.2 CAL 1,000 ML BOTTLE NG PRN (18:03)
--- NOTE | 2021-02-16 18:37 | NUR ---
MS RN CLOSING NOTES PATIENT IS RESTING COMFORTABLY. AWAKEN BY VERBAL AND PHYSICAL TOUCH. TOLERATING OXYGEN WELL VIA NC @ 2L, NO SOB NOTED. NO S/S OF RESPIRATORY DISTRESS. IV ACCESS IN BEKA MIDLINE INTACT, PATENT, AND FLUSHING WELL WITH NO IV FLUIDS RUNNING. TOLERATING JEVITY FEEDING WELL. BED IN LOWEST LOCKED POSITION, HOB ELEVATED, SIDE RAILS UPX2. CALL LIGHT AND TABLE WITHIN REACH. WILL CONTINUE TO MONITOR.
--- NOTE | 2021-02-16 19:10 | NUR ---
MS/RN OPENING NOTE RECEIVED PATIENT RESTING IN BED. AWAKE, ALERT AND ORIENTED X 2. ABLE TO MAKE NEEDS KNOWN. DENIES PAIN AT THIS TIME. CONTINUES ON 2L O2 VIA NC WITH NO S/SX OF RESPIRATORY DISTRESS NOTED. CONTINUES ON BILATERAL SOFT WRIST RESTRAINTS FOR SAFETY WITH POSITIVE CIRCULATION NOTED. CONTINUES ON G-TUBE FEED JEVITY 1.2 TUCKER @ 30CC/HR WITH GOAL RATE OF 60CC/HR. NO RESIDUAL NOTED AT THIS TIME. IV ACCESS TO RIGHT UPPER ARM MIDLINE INTACT, PATENT AND SALINE LOCKED. CONTINUES ON IV ABX. CALL LIGHT WITHIN REACH. FREQUENT SAFETY CHECKS MADE. ASPIRATION, FALL AND SAFETY PRECAUTIONS MAINTAINED. WILL CONTINUE TO MONITOR. Addendum: 02/16/21 at 2020 by HAROON SALEEM RN O2 NOTED AT 5L VIA NC.
[2021-02-16 20:00] VITALS: BP 102/68
[2021-02-16] MEDS: CEFTRIAXONE 1 G in IV D5W 50 ML IV SCH (22:01)
--- NOTE | 2021-02-17 02:20 | NUR ---
MS/RN NOTE PATIENT AWAKE IN BED, FIDGETING, PULLING AT RESTRAINTS. WILL ADMINISTER ATIVAN PRN ORDERED.
[2021-02-17] MEDS: LORAZEPAM INJ 2 MG/ML VIAL IV PRN (02:24)
--- NOTE | 2021-02-17 06:10 | NUR ---
MS/RN CLOSING NOTE PATIENT CURRENTLY SLEEPING IN BED. ALERT AND ORIENTED X 2. ABLE TO MAKE NEEDS KNOWN. DENIES PAIN AT THIS TIME. CONTINUES ON 5L O2 VIA NC WITH NO S/SX OF RESPIRATORY DISTRESS NOTED. CONTINUES ON BILATERAL SOFT WRIST RESTRAINTS FOR SAFETY WITH POSITIVE CIRCULATION NOTED. CONTINUES ON G-TUBE FEED JEVITY 1.2 TUCKER @ 45CC/HR WITH GOAL RATE OF 60CC/HR. IV ACCESS TO RIGHT UPPER ARM MIDLINE INTACT, PATENT AND SALINE LOCKED. CONTINUES ON IV ABX. CALL LIGHT WITHIN REACH. FREQUENT SAFETY CHECKS MADE. ASPIRATION, FALL AND SAFETY PRECAUTIONS MAINTAINED. WILL ENDORSE PLAN OF CARE TO ONCOMING SHIFT.
[2021-02-17 06:31] LABS: BASOPHILS % (AUTO) 0.2 % (0.0-2.0); HEMATOCRIT 29 % (39-51); HEMOGLOBIN 9.9 g/dL (13.5-17.5); LYMPHOCYTES # (AUTO) 0.5 K/uL (0.8-4.8); LYMPHOCYTES % (AUTO) 2.1 % (20.0-44.0); MEAN CORPUSCULAR HGB CONC 34 g/dl (31.0-36.0); MEAN CORPUSCULAR VOLUME 97 fL (80-96); MONOCYTES % (AUTO) 4.7 % (2.0-12.0); NEUTROPHILS # (AUTO) 20.3 K/uL (1.8-8.9); PLATELET COUNT (AUTO) 420 K/uL (150-450); RED BLOOD CELL COUNT(AUTO) 2.99 MIL/uL (4.5-6.0); WHITE BLOOD COUNT (AUTO) 21.8 K/uL (4.3-11.0)
[2021-02-17 06:47] LABS: CALCIUM, SERUM 12.5 mg/dL (8.5-10.1); CREATININE 1.1 mg/dL (0.6-1.3)
[2021-02-17 06:49] LABS: POTASSIUM 2.6 mmol/L (3.5-5.1)
--- NOTE | 2021-02-17 06:53 | NUR ---
MS/RN NOTE RECEIVED CALL FROM LAB REGARDING CRITICAL POTASSIUM LEVEL OF 2.6. NOTIFIED ON-CALL ENVELOPE MAKER MARILEE. AWAITING NEW ORDERS.
[2021-02-17] MEDS ORDERED: POTASSIUM CHLORIDE 20 MEQ TAB.PRT.SR PO ONE (07:00)
--- NOTE | 2021-02-17 07:34 | NUR ---
MS RN OPENING NOTES RECEIVED PATIENT AWAKE IN BED IN NO ACUTE SIGNS OF DISTRESS. A/O X 2. VERBALLY RESPONSIVE, DENIES PAIN OR ANY DISCOMFORTS AT THIS TIME. ON O2 VIA N/C AT 2LPM, TOLERATING WELL WITH NO SOB NOTED. ON BILATERAL SOFT WRIST RESTRAINTS IN PLACE FOR SAFETY WITH POSITIVE CIRCULATION NOTED. G-TUBE IN PLACE AND PATENT, GT FEEDING OF JEVITY 1.2 @ 45 CC/HR IN PROGRESS AT THIS TIME WITH GOAL RATE OF 60CC/HR, TOLERATING WELL, NO RESIDUAL NOTED AT THIS TIME. ASPIRATION PRECAUTIONS MAINTAINED. RIGHT UPPER ARM MIDLINE INTACT, PATENT AND FLUSHES WELL, SAFETY MEASURES IN PLACE: BED IN LOWEST LOCKED POSITION WITH SR UP X2. CALL LIGHT WITHIN REACH. WILL CONTINUE TO MONITOR PT ACCORDINGLY.
[2021-02-17 08:00] VITALS: BP 132/85
[2021-02-17] MEDS ORDERED: POTASSIUM PHOSPHATE MM 15 MMOL in IV NS 0.9% 250 ML IV SCH (08:00)
--- NOTE | 2021-02-17 08:00 | NUR ---
RN NOTES PT SEN AND EVALUATED BY DR CHRISTIAN. PLACED PT ON 02 VIA N/C AT 4LPM, TOLERATING WELL WITH SP02 OF 96% NOTED. DR CHRISTIAN MADE AWARE WITH ORDER TO TITRATE DOWN 02 TOLERATED.
[2021-02-17] MEDS: IPRATROPIUM NEB FS 0.5 MG/2.5 ML AMPUL.NEB NEB SCH ×4 (08:05→19:48)
[2021-02-17] MEDS: ALBUTEROL FS 2.5 MG/0.5 ML VIAL.NEB NEB SCH ×4 (08:05→19:48)
[2021-02-17] MEDS: methylPREDNISolone SOD SUCC 40 MG/ML VIAL IV SCH (09:02)
[2021-02-17] MEDS: POTASSIUM CL. PREMIX PERIPHER. 50 ML IV SCH ×6 (09:02→14:46)
[2021-02-17] MEDS: PANTOPRAZOLE 40 MG VIAL IV SCH ×2 (09:02→16:22)
[2021-02-17] MEDS: MUPIROCIN OINT 2% 22 GM TUBE NS SCH ×2 (09:02→21:07)
[2021-02-17] MEDS: POTASSIUM PHOSPHATE MM 7.5 MMOL in IV NS 0.9% 100 ML IV SCH ×2 (09:41→12:41)
--- NOTE | 2021-02-17 15:22 | NUR ---
RN NOTES PT KEEPS REMOVING 02 CANNULA ON HIS NOSE ,02 SAT CHECKED AND WAS 90%. 02 VIA N/C AT 4LPM CONTINUES AND INSTRUCTED PT NOT TO REMOVE IT FROM HIS NOSE, PT VERBALIZED "OK". 02 SAT CURRENTLY IS 94-96%.
[2021-02-17 16:00] VITALS: BP 143/65
--- NOTE | 2021-02-17 18:39 | NUR ---
MS RN CLOSING NOTES PT IN BED QUIETLY RESTING AT MODERATE HIGH BACKREST POSITION. A/O X 2. SPEAKS IN GARBLED VOICED. CONFUSED ON AND OFF. ON O2 VIA N/C AT 4LPM, TOLERATING WELL AT THIS TIME. BEKA MIDLINE INTACT, PATENT AND FLUSHES WELL. ON BILATERAL SOFT WRIST RESTRAINTS IN PLACE TO PREVENT PT PULLING HIS G-TUBE AND IV LINES WITH POSITIVE CIRCULATION NOTED. G-TUBE IN PLACE AND PATENT, GT FEEDING OF JEVITY 1.2 @ 60 ML/HR IN PROGRESS, TOLERATING WELL. ASPIRATION PRECAUTIONS MAINTAINED. PT TURNED AND REPOSITIONED Q 2HRS AND PRN. ALL NEEDS AND CARE PROVIDED WELL. SAFETY MEASURES KEPT IN PLACE: BED IN LOWEST LOCKED POSITION WITH SR UP X2. CALL LIGHT WITHIN REACH. WILL ENDORSE KRYS TO PROPOSAL REP NURSE.
--- NOTE | 2021-02-17 19:34 | NUR ---
RN OPENING NOTES: RECEIVED PATIENT SLEEP IN BED COMFORTABLY. BED IN LOW POSITION, CALL LIGHTS WITHIN REACH, NO COMPLAIN OF PAIN AND DISCOMFORT AT TIME, ON G TUBE FEEDING JEVITY 1.2@60CC PER HOUR INFUSING WELL, WITH BEKA ML SL PATIENT IS A/O X2 GARBLED SPEECH, ON 5LPM O2 TO TITRATE, BED IN LOW POSITION, CALL LIGHTS WITHIN REACH, NO SOB NOTED, WILL CONTINUE TO MONITOR.
[2021-02-17 20:00] VITALS: BP 128/70
[2021-02-17] MEDS: CEFTRIAXONE 1 G in IV D5W 50 ML IV SCH (23:03)
[2021-02-18] MEDS: LORAZEPAM INJ 2 MG/ML VIAL IV PRN (00:05)
--- NOTE | 2021-02-18 06:53 | NUR ---
RN CLOSING NOTES: PATIENT SLEEP IN BED COMFORTABLY, BED IN LOW POSITION, CALL LIGHTS WITHIN REACH, NO COMPLAIN OF PAIN AND DISCOMFORT AT THIS TIME, A/O X1 , NPO ON GTUBE FEEDING WITH JEVITY 1.2 @60CC PER MINUTE INFUSING WELL. WITH O2 INHALATION AT 5LPM TO TO TITRATE, WITH BEKA MIDLINE, PATIENT KEPT CLEAN AND DRY, ALL NEEDS MET, ENDORSE TO INCOMING SHIFT.
[2021-02-18 07:04] LABS: CALCIUM, SERUM 12.6 mg/dL (8.5-10.1); CREATININE 0.9 mg/dL (0.6-1.3); MAGNESIUM 2.2 mg/dL (1.8-2.4); PHOSPHORUS 1.9 mg/dL (2.5-4.9); POTASSIUM 3.6 mmol/L (3.5-5.1)
--- NOTE | 2021-02-18 07:10 | NUR ---
MS RN OPENING NOTE RECEIVED PATIENT ON BED, ALERT AND ORIENTED X 2-3. ABLE TO MAKE NEEDS KNOWN. PATIENT DENIES PAIN AT THIS TIME. WITH CONTINUES ON 5LPM O2 VIA NC WITH NO S/SX OF RESPIRATORY DISTRESS NOTED. WITH BEKA MIDLINE, ON SALINE LOCK, PATENT AND INTACT. MAINTAINED ON MODERATE TO HIGH BACK REST. PATIENT ON SOFT WRIST RESTRAINTS FOR PREVENTION OF PULLING CONTRAPTIONS. CALL LIGHT WITHIN REACH. SAFETY PRECAUTIONS MAINTAINED WITH BED LOCKED AND AT LOWEST POSITION. WILL CONTINUE TO MONITOR.
[2021-02-18 07:16] LABS: BASOPHILS % (AUTO) 0.1 % (0.0-2.0); EOSINOPHILS % (AUTO) 0.1 % (0.0-6.0); HEMATOCRIT 30 % (39-51); HEMOGLOBIN 10.1 g/dL (13.5-17.5); LYMPHOCYTES # (AUTO) 0.7 K/uL (0.8-4.8); LYMPHOCYTES % (AUTO) 2.8 % (20.0-44.0); MEAN CORPUSCULAR HGB CONC 34 g/dl (31.0-36.0); MEAN CORPUSCULAR VOLUME 99 fL (80-96); MONOCYTES # (AUTO) 0.7 K/uL (0.1-1.30); MONOCYTES % (AUTO) 3.2 % (2.0-12.0); NEUTROPHILS # (AUTO) 21.9 K/uL (1.8-8.9); NEUTROPHILS % (AUTO) 93.8 % (43.0-81.0); PLATELET COUNT (AUTO) 341 K/uL (150-450); RED BLOOD CELL COUNT(AUTO) 3.03 MIL/uL (4.5-6.0); WHITE BLOOD COUNT (AUTO) 23.4 K/uL (4.3-11.0)
[2021-02-18] MEDS ORDERED: POTASSIUM PHOSPHATE MM 15 MMOL in IV NS 0.9% 250 ML IV SCH (07:30)
[2021-02-18] MEDS: IPRATROPIUM NEB FS 0.5 MG/2.5 ML AMPUL.NEB NEB SCH ×4 (07:52→20:05)
[2021-02-18] MEDS: ALBUTEROL FS 2.5 MG/0.5 ML VIAL.NEB NEB SCH ×4 (07:52→20:05)
[2021-02-18 08:00] VITALS: BP 123/76
[2021-02-18] MEDS: POTASSIUM PHOSPHATE MM 7.5 MMOL in IV NS 0.9% 100 ML IV SCH ×2 (08:27→11:55)
[2021-02-18] MEDS: PANTOPRAZOLE 40 MG VIAL IV SCH ×2 (08:28→17:24)
[2021-02-18] MEDS: MUPIROCIN OINT 2% 22 GM TUBE NS SCH ×2 (08:38→21:08)
[2021-02-18] MEDS ORDERED: methylPREDNISolone SOD SUCC 40 MG/ML VIAL IV SCH (09:00)
[2021-02-18 10:28] LABS: BAND % (MANUAL) 1 % (0.0-5.0); LYMPHOCYTES % (MANUAL) 1 % (16-48); MONOCYTES % (MANUAL) 1 % (0-11.0); NEUTROPHILS % (MANUAL) 97 (42-76)
[2021-02-18 16:31] VITALS: BP 113/71
--- NOTE | 2021-02-18 19:00 | NUR ---
MS RN CLOSING NOTE RECEIVED PATIENT ON BED, ALERT AND ORIENTED X 2-3. ABLE TO MAKE NEEDS KNOWN. PATIENT DENIES PAIN AT THIS TIME. WITH CONTINUES ON 5LPM O2 VIA NC WITH NO S/SX OF RESPIRATORY DISTRESS NOTED. WITH BEKA MIDLINE, ON SALINE LOCK, PATENT AND INTACT. MAINTAINED ON MODERATE TO HIGH BACK REST. PATIENT ON SOFT WRIST RESTRAINTS FOR PREVENTION OF PULLING CONTRAPTIONS. CALL LIGHT WITHIN REACH. SAFETY PRECAUTIONS MAINTAINED WITH BED LOCKED AND AT LOWEST POSITION. WILL ENDORSE PATIENT FOR CONTINUITY OF CARE.
--- NOTE | 2021-02-18 19:32 | NUR ---
MS RN NOTES PATIENT IN BED. A/OX3. NO S/S OF APPARENT DISTRESS IN 3LPM OXYGEN VIA NC.. O2 SAT 96%. NO C/O PAIN AT THIS TIME. NO FLUIDS RUNNING AT THIS TIME. BILATERAL SOFT WRIST RESTRAINTS NOTED. SAFETY IN PLACE. WILL CONTINUE TO MONITOR.
[2021-02-18 20:00] VITALS: BP 137/80
[2021-02-18] MEDS: CEFTRIAXONE 1 G in IV D5W 50 ML IV SCH (23:01)
[2021-02-19] VITALS (20 sets, daily range): BP systolic 63–128; BP diastolic 31–74
[2021-02-19] MEDS: JEVITY 1.2 CAL 1,000 ML BOTTLE NG PRN ×2 (05:08→16:24)
[2021-02-19 06:42] LABS: BASOPHILS % (AUTO) 0.1 % (0.0-2.0); HEMATOCRIT 31 % (39-51); HEMOGLOBIN 10.1 g/dL (13.5-17.5); LYMPHOCYTES # (AUTO) 0.7 K/uL (0.8-4.8); LYMPHOCYTES % (AUTO) 2.7 % (20.0-44.0); MEAN CORPUSCULAR HGB CONC 33 g/dl (31.0-36.0); MEAN CORPUSCULAR VOLUME 100 fL (80-96); MONOCYTES # (AUTO) 0.9 K/uL (0.1-1.30); MONOCYTES % (AUTO) 3.1 % (2.0-12.0); NEUTROPHILS # (AUTO) 25.8 K/uL (1.8-8.9); NEUTROPHILS % (AUTO) 94.1 % (43.0-81.0); PLATELET COUNT (AUTO) 341 K/uL (150-450); RED BLOOD CELL COUNT(AUTO) 3.12 MIL/uL (4.5-6.0); WHITE BLOOD COUNT (AUTO) 27.5 K/uL (4.3-11.0)
--- NOTE | 2021-02-19 06:47 | NUR ---
PATIENT IN BED. A/OX3. NO S/S OF APPARENT DISTRESS TOLERATING 3LPM O2 VIA NC. NO C/O PAIN AT THIS TIME. NO BLEEDING FROM GI SITE. TOLERATING FEEDING OF JEVITY 1.2 60 CC/HR. NO FLUID RUNNING AT THIS TIME. ALL NEEDS ATTENDED. ALL SCHED MEDS ADMINISTERED. SAFETY KEPT IN PLACE THE WHOLE SHIFT. NO SIGNIFICANT CHANGE SINCE LAST SHIFT. WILL ENDORSE CARE TO MORNING SHIFT RN.
[2021-02-19 07:02] LABS: CALCIUM, SERUM 12.5 mg/dL (8.5-10.1); CREATININE 0.8 mg/dL (0.6-1.3); MAGNESIUM 2.3 mg/dL (1.8-2.4); PHOSPHORUS 2.6 mg/dL (2.5-4.9); POTASSIUM 3.5 mmol/L (3.5-5.1)
--- NOTE | 2021-02-19 07:10 | NUR ---
MS RN OPENING NOTE PATIENT ON BED, ALERT AND ORIENTED X 2-3. ABLE TO MAKE NEEDS KNOWN. PATIENT DENIES PAIN AT THIS TIME. WITH CONTINUES ON 3LPM O2 VIA NC WITH NO S/SX OF RESPIRATORY DISTRESS NOTED. WITH BEKA MIDLINE, ON SALINE LOCK, PATENT AND INTACT. WITH G-TUBE HOOKED TO FORMULA OF JEVITY 1.2 RUNNING AT 65ML/HR TOLERATED WELL. WITH 10ML RESIDUAL VOLUME CHECKED AT THIS TIME. MAINTAINED ON MODERATE TO HIGH BACK REST. PATIENT ON SOFT WRIST RESTRAINTS FOR PREVENTION OF PULLING CONTRAPTIONS. CALL LIGHT WITHIN REACH. SAFETY PRECAUTIONS MAINTAINED WITH BED LOCKED AND AT LOWEST POSITION. WILL CONTINUE TO MONITOR.
[2021-02-19] MEDS: ALBUTEROL FS 2.5 MG/0.5 ML VIAL.NEB NEB SCH ×4 (07:29→19:54)
[2021-02-19] MEDS: IPRATROPIUM NEB FS 0.5 MG/2.5 ML AMPUL.NEB NEB SCH ×4 (07:29→19:54)
--- NOTE | 2021-02-19 07:40 | NUR ---
received on 3 lpm o2 flow with spo2 94%. no sob noted. Addendum: 02/19/21 at 0741 by EDWARD DHILLON RT Amended: Links added.
--- NOTE | 2021-02-19 08:30 | NUR ---
MS RN NOTE PATIENT SEEN BY DR. CHRISTIAN WITH ORDERS MADE AND CARRIED OUT. WILL CONTINUE TO MONITOR PATIENT.
[2021-02-19] MEDS: PANTOPRAZOLE 40 MG VIAL IV SCH ×2 (08:40→16:26)
[2021-02-19] MEDS: MUPIROCIN OINT 2% 22 GM TUBE NS SCH ×2 (08:41→20:31)
--- NOTE | 2021-02-19 12:40 | NUR ---
MS RN NOTE WHILE MAKING ROUNDS PATIENT NOTED TO HAVE LABORED BREATHING WAS COLD TO TOUCH AND WITH SIGNS OF CYANOSIS. VITAL SIGNS CHECKED, PATIENT WITH OXYGEN OF 34% AT 3LPM VIA NASAL CANULA. PATIENT IS AWAKE BUT APPEARS LETHARGIC. CHARGE NURSE NOTIFIED. PATIENT ON HIGH BACK REST WITH OXYGEN RAISED TO 5LPM AND THEN CHANGED TO NON-REBREATHER MASK WITH OXYGEN INCREASED TO 15LPM. RT CAME AND ATTENDED TO THE PATIENT WELL. PATIENT REMAINS IN RESPIRATORY DISTRESS. CHARGE NURSE CALLED RAPID RESPONSE TEAM. RAPID RESPONSE TEAM CAME WITH DR. BARTON AT BEDSIDE, WHO WAS VISITING ANOTHER PATIENT THEN. PATIENT AMBUBAGGING STARTED WITH LATEST OXYGEN SATURATION AT 70'S. DR. CHRISTIAN AWARE OF PATIENT'S CONDITION. PATIENT INTUBATED AND TRANSFERRED TO ICU FOR KRYS. ENDORSED PATIENT ACCORDINGLY.
--- NOTE | 2021-02-19 12:40 | NUR ---
RESPONDED TO CONCRETE ENGINEERING TECHNICIAN IN ROOM 310 . UPON ARRIVAL , DR. BARTON AT BEDSIDE BAGGING PATIENT. PATIENT CYANOTIC, SATS 82%. NOT RESPONDING TO TACTILE STIMULI. INTUBATED BY MD . SBP>90'S. PER 3W CN-DR. CHRISTIAN AWARE OF PATIENT CHANGE IN CONDITION, TRANSFERRED TO ICU 258 FOR KRYS.
--- NOTE | 2021-02-19 13:20 | NUR ---
@ 1247 DR. SMITH INTUBATED THE PT. FOR AIRWAY PROTECTION, LOW SATURATION IN NON REBREATHER MASK. PT. INTUBATED WITH 7.5 ET TUBE SECURED @ 22 CM LIPLINE. CO2 DETECTOR CHANGED TO YELLOW COLOR POST INTUBATION. BREATH SOUNDS COARSE RHONCHI BILATERAL WITH SYMMETRICAL CHEST RISE EACH BVM. VENT SETTINGS BELOW ORDER: AC 14 VT 500 ML FIO2 100% PEEP 5 VENT PLUGGED INTO RED OUTLET WITH ALARMS ON AND FUNCTIONING. BVM AT BEDSIDE. Addendum: 02/19/21 at 1325 by EDWARD DHILLON RT Amended: Links added.
[2021-02-19] MEDS: ACETYLCYSTEINE 20% SOLN 800 MG/4 ML VIAL NEB SCH ×2 (14:47→23:58)
[2021-02-19 15:07] LABS: ABG BASE EXCESS 4.4 mmol/L; ABG OXYGEN SATURATION 95.2 % (92.0-98.5); ABG PCO2 55.1 mmHg (35.0-45.0); ABG PH 7.366 (7.350-7.450); ABG PO2 80.6 mmHg (75.0-100.0); AaDO2 577.3 mmHg; MetHb 0.2 % (0.0-1.5); PEEP,BG 5 cm H2O; SITE, ABG Right Brachial; VT, ABG 500 mL
[2021-02-19] MEDS ORDERED: PROPOFOL 100 ML IV PRN (15:30)
[2021-02-19] MEDS ORDERED: PROPOFOL 10MG/ML 50ML 50 ML IV PRN (16:00)
[2021-02-19] MEDS: PROPOFOL 10MG/ML 50ML 50 ML IV PRN ×2 (16:13→20:31)
[2021-02-19] MEDS ORDERED: KETAMINE HCL (500MG/10ML) 50 MG/ML VIAL ONE (16:56)
--- NOTE | 2021-02-19 17:00 | NUR ---
Et-tube replaced by Deysi Andrew due to malfunctioning cuff. New tube secured at 22cm. placed on previous vent settings. Addendum: 02/19/21 at 1714 by MARTY RICCI RT Amended: Links added.
--- NOTE | 2021-02-19 17:00 | NUR ---
ICU/RN PT IS REINTUBATED BY DR OGRMAN.KETAMINE AND ROCURONIUM IV GIVEN ORDERED.PT IS ON DIPRIVAN DRIP.PM CARE PROVIDED.DUE MEDS ARE GIVEN ORDERED,SUCTION PROVIDED.REPOSITION FOR COMFORT.CONTINUE MONITORING.
--- NOTE | 2021-02-19 17:31 | NUR ---
ET TUBE ADVANCED TO 26 CM @ LIP LINE. PLACED ON MECH VENTILATOR WITH PREVIOUS VENT SETTINGS. DAMI WELL. TIDAL VOLUMES ACHIEVED. MECH VENTILATOR PLUGGED INTO RED OUTLET. ALARMS SET AND AUDIBLE THROUGH OUT UNIT. BVM AT [facility]. RN NOTIFIED. WILL CONT TO MONITOR.
[2021-02-19] MEDS ORDERED: ROCURONIUM BROMIDE 50 MG/5 ML IV ONE (18:32)
--- NOTE | 2021-02-19 19:15 | NUR ---
RECEIVED PT ON BED SEDATED, ON ETT/VENT SETTING PER MD FIO2 100% SPO2 100% NO SIGN OF ANY DISTRESS, TELE MONITOR READS SINUS TACHY 120'S ON DIPRIVAN 10MCG/KG/MIN VIA BEKA ML INFUSING WELL, PT HAVE GTUBE ON PLACE WITH ONGOING JEVITY @ 30ML/HR, HAVE BILATERAL WRIST SOFT RESTRAINS CIRCULATION WILL CHECKED REGULARLY, BED ON LOWEST POSITION AND LOCKED SIDE RAILS UP X2 WILL CONT TO MONITOR
[2021-02-19] MEDS: CEFTRIAXONE 1 G in IV D5W 50 ML IV SCH (22:19)
[2021-02-19 22:48] LABS: BASOPHILS % (AUTO) 0.1 % (0.0-2.0); HEMATOCRIT 31 % (39-51); LYMPHOCYTES # (AUTO) 0.7 K/uL (0.8-4.8); LYMPHOCYTES % (AUTO) 2.2 % (20.0-44.0); MEAN CORPUSCULAR HGB CONC 33 g/dl (31.0-36.0); MEAN CORPUSCULAR VOLUME 100 fL (80-96); MONOCYTES # (AUTO) 0.9 K/uL (0.1-1.30); MONOCYTES % (AUTO) 2.9 % (2.0-12.0); NEUTROPHILS # (AUTO) 28.3 K/uL (1.8-8.9); NEUTROPHILS % (AUTO) 94.8 % (43.0-81.0); PLATELET COUNT (AUTO) 324 K/uL (150-450); RED BLOOD CELL COUNT(AUTO) 3.07 MIL/uL (4.5-6.0); WHITE BLOOD COUNT (AUTO) 29.8 K/uL (4.3-11.0)
[2021-02-19] MEDS ORDERED: ZOSYN IVPB 3.375 G in IV D5W 50ml IV SCH (23:00)
[2021-02-19 23:15] LABS: CALCIUM, SERUM 10.8 mg/dL (8.5-10.1); CARBON DIOXIDE 34 mmol/L (21-32); CHLORIDE 119 mmol/L (98-107); CREATININE 1.1 mg/dL (0.6-1.3); GLUCOSE 154 mg/dL (74-106); POTASSIUM 3.8 mmol/L (3.5-5.1); UREA NITROGEN, BLOOD 28 mg/dL (7-18)
[2021-02-19] MEDS ORDERED: IV NS 0.9% 1,000 ML IV ONE (23:30)
[2021-02-19 23:32] LABS: SODIUM SERUM 156 mmol/L (136-145)
[2021-02-19] MEDS ORDERED: PIPERACILLIN /TAZOBACTAM 3.375 G VIAL IV ONE (23:36)
[2021-02-20] VITALS (9 sets, daily range): BP systolic 43–108; BP diastolic 25–64
[2021-02-20] MEDS ORDERED: NOREPINEPHRINE 8 MG in IV NS 0.9% 242 ML IV PRN (00:30)
[2021-02-20] MEDS ORDERED: EPINEPHRINE (1:10,000) SYRINGE 1 MG/10 ML DISP.SYRIN ONE (00:44)
[2021-02-20] MEDS ORDERED: EPINEPHRINE (1:1000) 1 MG/ML AMPUL ONE (00:45)
[2021-02-20] MEDS ORDERED: EPINEPHRINE (1:1000) 10 MG in IV NS 0.9% 240 ML IV PRN (01:00)
[2021-02-20] MEDS ORDERED: EPINEPHRINE (1:1000) 5 MG in IV NS 0.9% 245 ML IV PRN (01:00)
[2021-02-20] MEDS ORDERED: NOREPINEPHRINE 8MG/250ML RTU 250 ML IV ONE (01:14)
--- NOTE | 2021-02-20 01:30 | NUR ---
@ 0019 PRESCHOOL TEACHER AIDE CALL AND INFORMED ME THAT THE PT BECOME KOSTAS CARDIA WITH HR 30'S I GO TO HIS ROOM AND ASSESSED PT SAW THE PULSE OX NOT WORKING START TO CHANGE THE PULSE OX AND I NOTICE THAT PT IS SO PALE CHECKED THE PULSE AND IT VERY SHALLOW AND LOW, AND @ 0020 HE BECOME PULSELESS, RT IS AT BEDSIDE THAT TIME AND WE CALL RONNI PIMENTEL, CHEST COMPRESSION STARTED @ 0020 SEE CODE BLUE SHEET,@0121 ER PRONOUNCE , ANA HUNT AT THE UNIT AND AWARE WITH ORDERS, BROTHER WAS CALLED 3 X WITH NO RESPONSE LEFT MESSAGE ON VIA VOICEMAIL
--- NOTE | 2021-02-20 01:30 | NUR ---
called family for the third time to inform that the patient but with no answer leave msg to the voicemail [phone]
--- NOTE | 2021-02-20 01:50 | NUR ---
[facility] WAS CALLED WITH REF # CC [id number] TALK TO MS LEVI AND PT WAS NOT CANDIDATE AND CAN BE SEND TO MORTUARY PER FAMILY DESIRE
--- NOTE | 2021-02-20 02:10 | NUR ---
[facility]EM CARE D[facility]IDENTIFICATION ON PLACE
[2021-02-20] MEDS ORDERED: ATROPINE SULFATE 1 MG/10 ML DISP.SYRIN IV ONE (03:16)
[2021-02-20] MEDS ORDERED: SODIUM BICARBONATE SYR 50 MEQ/50 ML DISP.SYRIN IV ONE (03:16)
[2021-02-20] MEDS ORDERED: EPINEPHRINE (1:10,000) SYRINGE 1 MG/10 ML DISP.SYRIN IVP ONE (03:16)
[2021-02-20] MEDS ORDERED: EPINEPHRINE (1:1000) 1 MG/ML AMPUL SUBCUT ONE (03:16)
--- NOTE | 2021-02-20 04:15 | NUR ---
BROTHER OF THE PT CALL MR RAMON PATEL [phone] INFORMED HIM THAT HIS BROTHER @ 0121, AND ASK HIM ABOUT THE OR MORTUARY BUT PT BROTHER SAID THEY DONT HAVE MEANS TO GET A FOR HIM SO HE IS LETTING THE HOSPITAL TO DO THAT ON THEIR BEHALF, CHARGE NURSE ED AND STITCHER AROUND MADE AWARE OF THIS CONVERSATION WITH THE PT BROTHER
== END 2021-02-20 03:17 | DRG 377 ==
LOC: ER 22:35 → TELE1 02-12 01:31 → MEDSG1 02-12 01:38 → MED 02-15 00:39 → ICU 02-19 12:55
PROVIDERS: ADMIT Registered Nurse; ATTEND Nurse Practitioner Acute Care
PROC: 05H533Z Insertion of Infusion Device into Right Subclavian Vein, Percutaneous Approach (ICD-10-PCS; 2021-02-15)
PROC: B546ZZA Ultrasonography of Right Subclavian Vein, Guidance (ICD-10-PCS; 2021-02-15)
PROC: 5A1935Z Respiratory Ventilation, Less than 24 Consecutive Hours (ICD-10-PCS; principal; 2021-02-19)
PROC: 0BH18EZ Insertion of Endotracheal Airway into Trachea, Via Natural or Artificial Opening Endoscopic (ICD-10-PCS; 2021-02-19)
PROC: 0BH18EZ Insertion of Endotracheal Airway into Trachea, Via Natural or Artificial Opening Endoscopic (ICD-10-PCS; 2021-02-19)
PROC: 5A12012 Performance of Cardiac Output, Single, Manual (ICD-10-PCS; 2021-02-20)
DX: K92.2 Gastrointestinal hemorrhage, unspecified (principal); E43 Unspecified severe protein-calorie malnutrition; J96.01 Acute respiratory failure with hypoxia; J69.0 Pneumonitis due to inhalation of food and vomit; D68.59 Other primary thrombophilia; R64 Cachexia; Z68.1 Body mass index [BMI] 19.9 or less, adult; E87.1 Hypo-osmolality and hyponatremia; T17.998A Other foreign object in respiratory tract, part unspecified causing other injury, initial encounter; E86.0 Dehydration; K21.9 Gastro-esophageal reflux disease without esophagitis; I10 Essential (primary) hypertension; F03.90 Unspecified dementia, unspecified severity, without behavioral disturbance, psychotic disturbance, mood disturbance, and anxiety; D72.829 Elevated white blood cell count, unspecified; X58.XXXA Exposure to other specified factors, initial encounter; E83.39 Other disorders of phosphorus metabolism; E78.5 Hyperlipidemia, unspecified; E83.52 Hypercalcemia; E87.6 Hypokalemia; F32.9 Major depressive disorder, single episode, unspecified; R13.10 Dysphagia, unspecified; G31.83 Neurocognitive disorder with Lewy bodies; F02.80 Dementia in other diseases classified elsewhere, unspecified severity, without behavioral disturbance, psychotic disturbance, mood disturbance, and anxiety; F39 Unspecified mood [affective] disorder; T38.0X5A Adverse effect of glucocorticoids and synthetic analogues, initial encounter; E88.09 Other disorders of plasma-protein metabolism, not elsewhere classified; R62.7 Adult failure to thrive; I95.9 Hypotension, unspecified; M62.50 Muscle wasting and atrophy, not elsewhere classified, unspecified site; Z22.322 Carrier or suspected carrier of Methicillin resistant Staphylococcus aureus; Z74.09 Other reduced mobility; J39.2 Other diseases of pharynx; F41.9 Anxiety disorder, unspecified; Y93.9 Activity, unspecified; D64.9 Anemia, unspecified; Y92.89 Other specified places as the place of occurrence of the external cause
CPT/HCPCS: 31720; 36415; 36600; 71045-TC; 80048-TC; 80053-TC; 80061-TC; 80076-TC; 81001; 82803-TC; 82962-TC; 83605-TC; 83735-TC; 84100-TC; 84443-TC; 85025-TC; 85730-TC; 86850-TC; 87040-TC; 87070-TC; 87081-TC; 92950-TC; 94002-TC; 94003-TC; 94799-TC; A4349; A6253; A6403; A7526; C9113; C9803; G0378; J0171; J0461; J0696; J2060; J2543; J2920; J3490; J7030; J7040; J7050; J7060; U0003